=== PATIENT | female | born 1950 | race Two or more races ===

== ENCOUNTER 2025-02-13 10:59 | Inpatient (IN) | payer MEDICARE, OTHER ==
[~2025-02-13] VITALS: Ht 177.8 cm; Wt 96.3 kg
--- NOTE | 2025-02-13 11:13 | ED.PDOC ---
Musculoskeletal HPI Comments This is a 74 year old female MAXIMILIANA presenting to the ED with chief complaint of left hip pain. Patient reports that she had tripped and fell around an hour ago onto her left side, injuring her left hip. Patient relays that she is now experiencing left hip pain, unable to walk or get up on her own due to the pain with movement. Patient denies any numbness, weakness, tingling, or further injury. Chief Complaint: Lower Extremity Time Seen by MD: 11:09 Reviewed Notes: Nurses Notes, Can Machine Operator Notes, Medications, Allergies Allergies: Coded Allergies: NO KNOWN ALLERGIES (Unverified , 02/13/25) Information Source: Patient, Emergency Med Personnel Mode of Arrival: EMS Location: Left Extremity Location: Hip Timing: Hours Prehospital treatment: None Severity: Moderate Able to Move Extremity: No Bear Weight: No Pain: Moderate Mechanism: Spontaneous Circumstances: Fall Onset of Symptoms: After Trauma Symptoms: Pain DVT Risk Factors: NONE Past Medical History PAST MEDICAL HISTORY: DM, High Lipids, HTN, Seizures Surgical History (Other): Left shoulder replacement OPERATION SPECIALIST History: Denies all OPERATION SPECIALIST Hx Family History Family History: Reviewed,noncontributory to illness Social History Smoker: Non-Smoker Alcohol: Denies ETOH Use Drugs: Denies Drug Use Lives In: Home Constitutional: denies: chills, diaphoresis, fatigue, fever, malaise, sweats, weakness, others EENTM: denies: blurred vision, double vision, ear bleeding, ear discharge, ear drainage, ear pain, ear ringing, eye pain, eye redness, hearing loss, mouth pain, mouth swelling, nasal discharge, nose bleeding, nose congestion, nose pain, photophobia, tearing, throat pain, throat swelling, voice changes, others Respiratory: denies: cough, hemoptysis, orthopnea, SOB at rest, shortness of breath, SOB with excertion, stridor, wheezing, others Cardiovascular: denies: chest pain, dizzy spells, diaphoresis, Dyspnea on exertion, edema, irregular heart beat, left arm pain, lightheadedness, palpitations, PND, syncope, others Gastrointestinal: denies: abdomen distended, abdominal pain, blood streaked bowels, constipated, diarrhea, dysphagia, difficulty swallowing, hematemesis, melena, nausea, poor appetite, poor fluid intake, rectal bleeding, rectal pain, vomiting, others Genitourinary: denies: abnormal vagina bleeding, burning, dyspareunia, dysuria, flank pain, frequency, hematuria, incontinence, pain, , vagina discharg e, urgency, others Neurological: denies: dizziness, fainting, headache, left sided numbness, left sided weakness, numbness, paresthesia, pre-existing deficit, right sided numbness, right sided weakness, seizure, speech problems, tingling, tremors, weakness, others Musculoskeletal: reports: others (Left hip pain); denies: back pain, gout, joint pain, joint swelling, muscle pain, muscle stiffness, neck pain Integumetry: denies: bruises, change in color, change in hair/nails, dryness, laceration, lesions, lumps, rash, wounds, others Allergic/Immunocompromised: denies: Difficulty Healing, Frequent Infections, Hives, Itching, others Hematologic/Lymphatic: denies: anemia, blood clots, easy bleeding, easy bruising, swollen glands, others Endocrine: denies: excessive hunger, excessive sweating, excessive thirst, excessive urination, flushing, intolerance to cold, intolerance to heat, unexplained weight gain, unexplained weight loss, others Psychiatric: denies: anxiety, bipolar disorder, depression, hopeless, panic disorder, schizophrenia, sleepless, suicidal, others All Other Systems: Reviewed and Negative Physical Exam General Appearance: Moderate Distress, Normal HEENT: Normal ENT Inspection, Pharynx Normal, TMs Normal Neck: Full Range of Motion, Non-Tender, Normal, Normal Inspection Respiratory: Chest Non-Tender, Lungs Clear, No Accessory Muscle Use, No Respiratory Distress, Normal Breath Sounds Cardiovascular: Bradycardia, No Edema, No JVD, No Murmur, No Gallop, Normal Peripheral Pulses Breast Exam: Deferred Gastrointestinal: No Organomegaly, Non Tender, No Pulsatile Mass, Normal Bowel Sounds, Soft Genitalia: Deferred Pelvic: Deferred Rectal: Deferred Extremities: Decreased range of motion (Left lower extremity), No calf tenderness, No pedal edema, Tender (Left lower extremity) Musculoskeletal : Apperance: Normal Neurologic: Alert, yard laborer II-XII nml as Tested, No Motor Deficits, Normal Affect, Normal Mood, No Sensory Deficits Cerebellar Function: NOT DONE Reflexes: NOT DONE Skin: Dry, Normal Color, Warm Peripheral Pulses: 3+ Radial (R), 3+ Radial (L) Lymphatic: No Adenopathy Was a procedure done? Was a procedure done?: No Differential Diagnosis EXT Differential Diagnosis: Fracture, Sprain, Dislocation, Contusion X-Ray, Labs, Meds, VS Vital Signs Date Time Temp Pulse Resp B/P (MAP) Pulse Ox O2 Delivery O2 Flow Rate FiO2 02/13/25 12:47 53 15 131/69 02/13/25 12:00 98.2 53 15 131/69 (89) 92 98.2 02/13/25 11:31 55 13 124/71 02/13/25 11:20 55 13 124/71 (88) 93 02/13/25 11:20 55 13 93 Room Air* 0 21 02/13/25 11:03 98.9 68 16 128/89 100 98.9 Lab Test 02/13/25 14:40 02/13/25 11:30 Range/Units Urine Color Light-yellow Yellow Urine Clarity Clear Clear Urine pH 5.5 5.0-9.0 Urine Specific [place] 1.016 1.001-1.035 Urine Protein Negative Negative Urine Ketones Negative Negative Urine Blood Negative Negative /uL Urine Nitrite 2+ H Negative Urine Bilirubin Negative Negative Urine Urobilinogen Normal Negative mg/dL Urine Leukocyte Esterase Trace Negative /uL Urine RBC <1 0 - 4 /hpf Urine Microscopic WBC 3 0-5 /HPF Urine Squamous Epithelial Cells Few <5 /hpf Urine Bacteria None seen None Seen /hpf Urine Mucus Few None Seen Urine Glucose Normal Normal mg/dL White Blood Count 5.7 4.4-10.8 10^3/uL Red Blood Count 4.43 4.0-5.20 10^6/uL Hemoglobin 14.0 12.2-16.2 g/dL Hematocrit 41.2 36.0-46.0 % Mean Corpuscular Volume 92.9 80.0-100.0 fL Mean Corpuscular Hemoglobin 31.7 28.0-32.0 pg Mean Corpuscular Hemoglobin Concent 34.1 32.0-36.0 g/dL Red Cell Distribution Width 13.5 11.8-14.3 % Platelet Count 123 L 140-450 10^3/uL Mean Platelet Volume 8.0 6.9-10.8 fL Neutrophils (%) (Auto) 78.1 37.0-80.0 % Lymphocytes (%) (Auto) 12.9 10.0-50.0 % Monocytes (%) (Auto) 5.6 0.0-12.0 % Eosinophils (%) (Auto) 2.9 0.0-7.0 % Basophils (%) (Auto) 0.5 0.0-2.0 % Neutrophils # (Auto) 4.4 1.6-8.6 10 ^3/uL Lymphocytes # (Auto) 0.7 0.4-5.4 10 ^3/uL Monocytes # (Auto) 0.3 0-1.3 10 ^3/uL Eosinophils # (Auto) 0.2 0-0.8 10 ^3/uL Basophils # (Auto) 0 0-0.2 10 ^3/uL Nucleated Red Blood Cells 0.0 % Sodium Level 140 136-145 mmol/L Potassium Level 4.2 3.5-5.1 mmol/L Chloride Level 105 98-107 mmol/L Carbon Dioxide Level 27 20-31 mmol/L Anion Gap 8 5-15 Blood Urea Nitrogen 11 9-23 mg/dL Creatinine 0.85 0.550-1.02 mg/dL Glomerular Filtration Rate Calc 71 >90 mL/min BUN/Creatinine Ratio 12.9 10.0-20.0 Serum Glucose 152 H 74-106 mg/dL Calcium Level 9.3 8.7-10.4 mg/dL Current Medications Medications (Trade) Dose Ordered Sig/Herve Route Start Time Stop Time Status Last Admin Morphine Sulfate 4 mg ONCE ONCE IV 02/13/25 11:15 02/13/25 11:16 DC 02/13/25 11:31 Ondansetron HCl (Zofran) 4 mg ONCE ONCE IV 02/13/25 11:15 02/13/25 11:16 DC 02/13/25 11:31 Pelvis XR: There is no evidence of acute fracture or dislocation. Moderate degenerative changes of bilateral hips. Lucency is present in the left femoral neck which is felt to most likely represent artifact. If there is high clinical suspicion for fracture in this area recommend dedicated left hip radiographs. Patient alert. Complaining of left hip pain. Status post fall. Vitals stable. Blood sugar elevated. CT scan of the pelvis does show degenerative disease. Possibly need CT scan. Continues to have excruciating. Establish intravenous access. Was given morphine. Was given Zofran. Continue monitor. Images Reviewed?: Images reviewed and evaluated by me Time of 1ST Reevaluation: 12:08 Reevaluation 1ST: Unchanged Patient Education/Counseling: Diagnosis, Treatment Family Education/Counseling: No Family Present Departure 1 Departure Time of Disposition: 14:58 Impression: Primary Impression: Bradycardia Additional Impressions: Femur fracture Qualified Codes: S72.92XA - Unspecified fracture of left femur, initial encounter for closed fracture Uncontrolled diabetes mellitus Qualified Codes: E13.65 - Other specified diabetes mellitus with hyperglycemia Disposition: ADMITTED INPATIENT Admit to: Med Surg Condition: Guarded Critical Care Note Critical Care Time?: No Stability Stability form required: No Heart Score Heart Score: Heart Score Response (Comments) Value History Slightly Suspicious 0 EKG Normal 0 Age >65 2 Risk Factors >3 or Hx ASHD 2 Troponin Normal limit 0 Total 4 I personally scribed for JOSE STYLES MD ([email or web address]) on 02/13/25 at 11:13. Electronically submitted by Alan Martinez ([email or web address]). I personally scribed for JOSE STYLES MD ([email or web address]) on 02/13/25 at 12:16. Electronically submitted by Alan Martinez ([email or web address]). JOSE STYLES MD Feb 13, 2025 11:13
[2025-02-13 11:20] VITALS: PULSE 55; RESP 13; O2SAT 93
[2025-02-13] MEDS: ONDANSETRON HCL 4 MG/2 ML VIAL IV ONE (11:31)
[2025-02-13] MEDS: MORPHINE SULFATE 4 MG/ML SYR/VIAL IV ONE (11:31)
[2025-02-13 11:40] LABS: Hematocrit 41.2 % (36.0-46.0); Hemoglobin 14.0 g/dL (12.2-16.2); Mean Corpuscular Hemoglobin 31.7 pg (28.0-32.0); Mean Corpuscular Volume 92.9 fL (80.0-100.0); Nucleated Red Blood Cells % 0.0 %
[2025-02-13 11:47] LABS: Chloride 105 mmol/L (98-107); Potassium 4.2 mmol/L (3.5-5.1); Sodium 140 mmol/L (136-145)
[2025-02-13 11:48] LABS: Anion Gap 8 (5-15); Calcium 9.3 mg/dL (8.7-10.4); Carbon Dioxide 27 mmol/L (20-31)
[2025-02-13 11:53] LABS: BUN/Creatinine Ratio 12.9 (10.0-20.0); Blood Urea Nitrogen 11 mg/dL (9-23)
[2025-02-13 11:54] LABS: Glucose 152 mg/dL (74-106)
--- NOTE | 2025-02-13 12:07 | DVH ---
CLINICAL INDICATION: fx TECHNIQUE: XY PELVIS AP Comparison: None FINDINGS/IMPRESSION: : There is no evidence of acute fracture or dislocation. Moderate degenerative changes of bilateral hips. Lucency is present in the left femoral neck which is felt to most likely represent artifact. If there is high clinical suspicion for fracture in this area recommend dedicated left hip radiographs.
[2025-02-13 15:18] LABS: Urine Protein, UAD Negative (Negative)
--- NOTE | 2025-02-13 15:39 | DVH ---
EXAM: CT PELVIS WO CONTRAST INDICATION: lefthip TECHNIQUE: Axial images of pelvis without contrast have been obtained along with coronal and sagittal reformatted images. All CT scans at this facility use dose modulation, iterative reconstruction, and /or weight based dosing when appropriate to reduce radiation dose to as low as reasonably achievable. COMPARISON: XY PELVIS AP on DOS: 02/13/25 FINDINGS: BONES: Significant comminuted, impacted left transcervical femoral neck fracture with anterior apex a ngulation. Mild 1/3 shaft width anterior displacement of the distal fragment. Largely nondisplaced fr acture of the S5 vertebral body. MUSCLES: No measurable intramuscular hematoma JOINT SPACES: No joint effusion. TENDONS/LIGAMENTS: Intact. OTHER: Soft tissue swelling likely related to soft tissue contusion of the left lateral thigh IMPRESSION: 1. Significant comminuted, impacted left transcervical femoral neck fracture with anterior apex angul ation. 2. Largely nondisplaced fracture of the S5 vertebral body.
[2025-02-13] MEDS ORDERED: MORPHINE SULFATE INJ 2 MG/ml SYRG IV PRN (16:00)
[2025-02-13] MEDS ORDERED: NITROGLYCERIN 0.4 MG SL TAB SL PRN (16:00)
[2025-02-13] MEDS ORDERED: ONDANSETRON HCL 4 MG/2 ML VIAL IV PRN (16:00)
[2025-02-13] MEDS: MORPHINE SULFATE INJ 2 MG/ml SYRG IV PRN (16:30)
[2025-02-13] MEDS: SODIUM CHLORIDE 0.9% 1,000 ML IV SCH (17:04)
--- NOTE | 2025-02-13 17:23 | DVHHPRES ---
History of Present Illness Resident Creating Document: SANKET CHRISTIANSON RESIDENT History of Present Illness Cynthia Parks is a 74-year-old female with history of diabetes mellitus type 2, seizure disorder, hypertension, hypothyroidism and dyslipidemia who presented to the ED after she tripped over her dog and fell this morning. Patient mentions that the fall impacted her left hip. She states she did not hit her head. The patient currently has pain in her lower back and her left hip. She can not move her left leg and can not bear weight on it. Past medical history: Diabetes mellitus type 2, hypertension, seizure disorder, hypothyroidism, dyslipidemia Past surgical history: Shoulder replacement in May 2024, hysterectomy, fusion surgery for C5-C6 C7, surgical fixation of the right radius Home medications: Metformin, Keppra, lisinopril, levothyroxine, Celexa, pravastatin Social & Personal history: Lives at home, vapes nicotine, denies alcohol and recreational drug consumption Allergies: No known allergies Patient seen and examined at bedside. Patient is alert and oriented to time, place person and responding to all questions. Patient is in distress due to pain in her bag and left hip. Eyes: No Pain, No Vision change, No Conjunctivae inflammation, No Eyelid inflammation, No Redness ENT: No Ear pain, No Ear discharge, No Nose pain, No Nose discharge, No Nose congestion, No Mouth pain, No Mouth swelling, No Throat pain, No Throat swelling Cardiovascular: No Chest Pain, No Palpitations, No Orthopnea, No Paroxysmal No Dyspnea, No Edema, No Lt Headedness Respiratory: No Cough, No Dry, No Shortness of breath, No SOB with exertion, No Wheezing, No Hemoptysis, No Pleuritic Pain, No Sputum Gastrointestinal: No Nausea, No Vomiting, No Abdominal Pain, No Diarrhea, No Constipation, No Melena, No Hematochezia Genitourinary: No Dysuria, No Frequency, No Incontinence, No Hematuria, No Retention Cardiovascular: HTN Musculoskeletal: Other Endocrine: Diabetes Past Surgical History: Appendectomy, Hysterectomy ALCOHOL: none Drugs: None Review of Systems Review of Systems Patient seen and examined at bedside. Patient is alert and oriented to time, place person and responding to all questions. Patient is in distress because of the pain in her back and left hip. Eyes: No Pain, No Vision change, No Conjunctivae inflammation, No Eyelid inflammation, No Redness ENT: No Ear pain, No Ear discharge, No Nose pain, No Nose discharge, No Nose congestion, No Mouth pain, No Mouth swelling, No Throat pain, No Throat swelling Cardiovascular: No Chest Pain, No Palpitations, No Orthopnea, No Paroxysmal No Dyspnea, No Edema, No Lt Headedness Respiratory: No Cough, No Dry, No Shortness of breath, No SOB with exertion, No Wheezing, No Hemoptysis, No Pleuritic Pain, No Sputum Gastrointestinal: No Nausea, No Vomiting, No Abdominal Pain, No Diarrhea, No Constipation, No Melena, No Hematochezia Genitourinary: No Dysuria, No Frequency, No Incontinence, No Hematuria, No Retention Allergies: Coded Allergies: NO KNOWN ALLERGIES (Unverified , 02/13/25) Medications Current Medications Medications Dose Ordered Sig/Herve Route Start Time Stop Time Status Last Admin Dose Admin Sodium Chloride 1,000 ml @ 60 mls/hr [id number] IV 02/13/25 16:00 Acetaminophen/ Hydrocodone Bitart 1 tab Q4HP PRN PO 02/13/25 16:00 Ondansetron HCl 4 mg Q4HP PRN IV 02/13/25 16:00 Acetaminophen 650 mg Q6HP PRN PO 02/13/25 16:00 Morphine Sulfate 2 mg Q4HPRN PRN IV 02/13/25 16:00 Nitroglycerin 0.4 mg Q5MINP PRN SL 02/13/25 16:00 Morphine Sulfate 2 mg Q30M PRN IV 02/13/25 16:00 Exam Vital Signs Vital Signs Date Time Temp Pulse Resp B/P (MAP) Pulse Ox O2 Delivery O2 Flow Rate FiO2 02/13/25 16:30 97.5 52 18 131/66 (87) 97 97.5 02/13/25 11:20 Room Air* 0 21 Exam General Appearance: Cooperative. Well developed. Well nourished. NAD. The patient is lying on the stretcher with her left leg externally rotated and flexed. Head Exam: Normal inspection Neck Exam: Normal inspection. Non-tender. Normal alignment Pulmonary/Respiratory: Chest non-tender. Clear bilateral breath sounds, no crackles, no wheezing. Cardiovascular/Chest: Regular rate and rhythm. No murmurs. No JVD. Peripheral Pulses: 2+ Radial (R). 2+ Radial (L). 2+ Pedal (R). 2+ Pedal (L) Abdominal Exam: Normal bowel sounds. Soft. normal abdomen, no visible veins, Nontender. No hepatospenomegaly. No masses Ankle Exam: Negative ankle edema Lower extremities: Negative lower extremity edema Neuro/Mental Status: A&O x4. Coherent. Thoughts/Psych: Normal thought pattern. Appropriate mood and affect. Good judgement and insight Skin Exam: Normal inspection. Normal color. Warm. Dry Labs/Xrays Labs Test 02/13/25 14:40 02/13/25 11:30 Range/Units Urine Color Light-yellow Yellow Urine Clarity Clear Clear Urine pH 5.5 5.0-9.0 Urine Specific [employer] 1.016 1.001-1.035 Urine Protein Negative Negative Urine Ketones Negative Negative Urine Blood Negative Negative /uL Urine Nitrite 2+ H Negative Urine Bilirubin Negative Negative Urine Urobilinogen Normal Negative mg/dL Urine Leukocyte Esterase Trace Negative /uL Urine RBC <1 0 - 4 /hpf Urine Microscopic WBC 3 0-5 /HPF Urine Squamous Epithelial Cells Few <5 /hpf Urine Bacteria None seen None Seen /hpf Urine Mucus Few None Seen Urine Glucose Normal Normal mg/dL White Blood Count 5.7 4.4-10.8 10^3/uL Red Blood Count 4.43 4.0-5.20 10^6/uL Hemoglobin 14.0 12.2-16.2 g/dL Hematocrit 41.2 36.0-46.0 % Mean Corpuscular Volume 92.9 80.0-100.0 fL Mean Corpuscular Hemoglobin 31.7 28.0-32.0 pg Mean Corpuscular Hemoglobin Concent 34.1 32.0-36.0 g/dL Red Cell Distribution Width 13.5 11.8-14.3 % Platelet Count 123 L 140-450 10^3/uL Mean Platelet Volume 8.0 6.9-10.8 fL Neutrophils (%) (Auto) 78.1 37.0-80.0 % Lymphocytes (%) (Auto) 12.9 10.0-50.0 % Monocytes (%) (Auto) 5.6 0.0-12.0 % Eosinophils (%) (Auto) 2.9 0.0-7.0 % Basophils (%) (Auto) 0.5 0.0-2.0 % Neutrophils # (Auto) 4.4 1.6-8.6 10 ^3/uL Lymphocytes # (Auto) 0.7 0.4-5.4 10 ^3/uL Monocytes # (Auto) 0.3 0-1.3 10 ^3/uL Eosinophils # (Auto) 0.2 0-0.8 10 ^3/uL Basophils # (Auto) 0 0-0.2 10 ^3/uL Nucleated Red Blood Cells 0.0 % Sodium Level 140 136-145 mmol/L Potassium Level 4.2 3.5-5.1 mmol/L Chloride Level 105 98-107 mmol/L Carbon Dioxide Level 27 20-31 mmol/L Anion Gap 8 5-15 Blood Urea Nitrogen 11 9-23 mg/dL Creatinine 0.85 0.550-1.02 mg/dL Glomerular Filtration Rate Calc 71 >90 mL/min BUN/Creatinine Ratio 12.9 10.0-20.0 Serum Glucose 152 H 74-106 mg/dL Calcium Level 9.3 8.7-10.4 mg/dL SEPSIS Sepsis Screen Date sepsis recognized/suspect: Feb 13, 2025 Time Sepsis recognized/suspect: 1119 Recent Procedure: No On Antibiotic Therapy: No Respiratory Rate >20: No Heart Rate >90: No Temp<36 C (96.8 F) or >38.3 C: No SBP <90 or MAP <65 mmHG: No New Acute Mental Status Change: No Is the patient on CPAP, BIPAP,: No Physician Orders Pelvis Ap (02/13/25 11:12) Pelvis Wo Contrast (02/13/25 15:01) Admit (02/13/25 15:55) Allergies (02/13/25 15:55) Code Status (02/13/25 15:55) Renal Standard(2gna,3gk,Lopho) (02/13/25 Dinner) Sodium Chloride 0.9% (02/13/25 16:00) Hydrocodone-Acet 5/325mg Tab (Hoffman 5/32 (02/13/25 16:00) Ondansetron Hcl (Zofran) (02/13/25 16:00) Complete Blood Count (02/14/25 04:00) Comprehensive Metabolic Panel (02/14/25 04:00) Condition: Unstable (02/13/25 15:55) Acetaminophen Tablet (Tylenol Tablet) (02/13/25 16:00) Morphine Sulfate Injection (02/13/25 16:00) Nitroglycerin Sublingual (Ntrostat Subli (02/13/25 16:00) Morphine Sulfate Injection (02/13/25 16:00) Oxygen By Nasal Cannula (02/13/25 15:55) Stat Ekg For Chest Pain (02/13/25 15:55) Notify Md Of Changes From Base (02/13/25 15:55) Steaming Cabinet Tender For 24 Hours (02/13/25 15:55) Emergency Dysrhythmia Protocol (02/13/25 15:55) Rhythm Strips Once Every Shift (02/13/25 15:55) *Consult Dr. Kevin Weeks (02/13/25 16:21) Thyroid Stimulating Hormone (02/13/25 16:34) PTPTT (02/13/25 16:34) Hemoglobin A1c (02/13/25 16:34) Covid19 Antigen [place]abel (02/13/25 ) Rapid Influenza A&B (02/13/25 16:37) Vital Signs Date Time Temp Pulse Resp B/P (MAP) Pulse Ox O2 Delivery O2 Flow Rate FiO2 02/13/25 16:30 97.5 52 18 131/66 (87) 97 97.5 02/13/25 12:47 53 15 131/69 02/13/25 12:00 98.2 53 15 131/69 (89) 92 98.2 02/13/25 11:31 55 13 124/71 02/13/25 11:20 55 13 124/71 (88) 93 02/13/25 11:20 55 13 93 Room Air* 0 21 02/13/25 11:03 98.9 68 16 128/89 100 98.9 Laboratory Tests Test 02/13/25 11:30 White Blood Count 5.7 10^3/uL (4.4-10.8) Medications Medications Dose Ordered Sig/Herve Route Start Time Stop Time Status Last Admin Dose Admin Morphine Sulfate 4 mg ONCE ONCE IV 02/13/25 11:15 02/13/25 11:16 DC 02/13/25 11:31 4 MG Ondansetron HCl 4 mg ONCE ONCE IV 02/13/25 11:15 02/13/25 11:16 DC 02/13/25 11:31 4 MG Assessment/Plan Assessment/Plan Acute Left comminuted femoral neck fracture mechanical fall without LOC S5 vertebral body fracture -Pelvic CT showed-Significant comminuted, impacted left transcervical femoral neck fracture with anterior apex angulation -Largely nondisplaced fracture of the S5 vertebral body -ortho consult -pain management Diabetes mellitus, controlled -insulin mild sliding scale Hypertension, controlled -continue lisinopril 50mg daily Seizure disorder -continue home dose of Keppra 750 mg bid Dyslipidemia -continue pravastatin Hypothyroidism -resume levothyroxine 50 PUD prophylaxis: not indicated DVT prophylaxis: not indicated Goals of care: Full code, discussed for >23 minutes Plan discussed with Dr Crouch Plan discussed with: Patient, Daughter My Orders Orders - SANKET CHRISTIANSON RESIDENT Procedure Category Date Status Time Admit ADMIT 02/13/25 Transmitted 15:55 Allergies ELAINE 02/13/25 In Process 15:55 Code Status CODE 02/13/25 Transmitted 15:55 Renal DIET 02/13/25 Transmitted Standard(2gna,3gk,Lopho) Dinner Sodium Chloride 0.9% PHA 02/13/25 In Process 16:00 Hydrocodone-Acet PHA 02/13/25 In Process 5/325mg Tab (Hoffman 16:00 Ondansetron Hcl PHA 02/13/25 In Process (Zofran) 16:00 Complete Blood Count LAB 02/14/25 Verified 04:00 Comprehensive LAB 02/14/25 Verified Metabolic Panel 04:00 Condition: Unstable ELAINE 02/13/25 In Process 15:55 Acetaminophen Tablet PHA 02/13/25 In Process (Tylenol Tablet) 16:00 Morphine Sulfate PHA 02/13/25 In Process Injection 16:00 Nitroglycerin PHA 02/13/25 In Process Sublingual (Ntrostat 16:00 Morphine Sulfate PHA 02/13/25 In Process Injection 16:00 Oxygen By Nasal RT 02/13/25 Transmitted Cannula 15:55 Stat Ekg For Chest ELAINE 02/13/25 In Process Pain 15:55 Notify Of Changes ELAINE 02/13/25 In Process From Base 15:55 Steaming Cabinet Tender For ELAINE 02/13/25 In Process 24 Hours 15:55 Emergency Dysrhythmia ELAINE 02/13/25 In Process Protocol 15:55 Rhythm Strips Once ELAINE 02/13/25 In Process Every Shift 15:55 Thyroid Stimulating LAB 02/13/25 In Process Hormone 16:34 PTPTT LAB 02/13/25 Logged 16:34 Hemoglobin A1c LAB 02/13/25 In Process 16:34 Covid19 Antigen [place] LAB 02/13/25 Logged Rapid Influenza A&B LAB 02/13/25 Logged 16:37 Date of Service: Feb 13, 2025 Billing Provider: DAVID HOOPER MD Common Visit Codes: 59004-IPXDNAG INP/OBS CARE (HIGH) Secondary Visit Codes: [id number] CARE PLAN 30 MINUTES SANKET CHRISTIANSON RESIDENT Feb 13, 2025 17:22 DAVID HOOPER MD Feb 22, 2025 18:39
[2025-02-13] MEDS ORDERED: DEXTROSE (50%) 50ML SYRG IV PRN (17:30)
[2025-02-13 17:57] LABS: INR 1.15 (0.9-1.15); Partial Thromboplastin Time 26.3 SEC (24.5-34.5); Prothrombin Time 12.0 sec (9.3-11.8)
[2025-02-13 18:27] VITALS: BP 125/78; PULSE 65; RESP 18; TEMP 98.2; O2SAT 95
[2025-02-13 19:17] LABS: COVID19 ANTIGEN SOFIA FIA NEGATIVE (NEGATIVE)
[2025-02-13 20:00] VITALS: PULSE 74; RESP 18; O2SAT 96
[2025-02-13 21:00] VITALS: BP 120/61; PULSE 74; RESP 18; TEMP 98.3; O2SAT 96
[2025-02-13] MEDS: ACCU-CHEK COMFORT CURVE STRIP VI SCH (22:29)
[2025-02-13] MEDS: InsuLIN REG 1unit/0.01ml Soln (100units/ml) SC SCH (22:36)
[2025-02-14] VITALS (8 sets, daily range): BP systolic 109–145; BP diastolic 53–78; PULSE 57–70; RESP 16–20; TEMP 89.5–99.8; O2SAT 95–98
[2025-02-14] MEDS: LEVOTHYROXINE SODIUM 50 MCG TAB PO SCH (06:09)
[2025-02-14] MEDS: HYDROcodone-ACET 5/325MG TAB PO PRN (06:19)
[2025-02-14 07:09] LABS: Hematocrit 38.1 % (36.0-46.0); Hemoglobin 13.3 g/dL (12.2-16.2); Mean Corpuscular Hemoglobin 32.1 pg (28.0-32.0); Mean Corpuscular Volume 92.0 fL (80.0-100.0); Nucleated Red Blood Cells % 0.1 %
[2025-02-14 07:20] LABS: Alanine Aminotransferase 16 U/L (7-40); Albumin 3.8 g/dL (3.2-4.8); Alkaline Phosphatase 50 U/L (46-116); Anion Gap 8 (5-15); BUN/Creatinine Ratio 14.9 (10.0-20.0); Blood Urea Nitrogen 10 mg/dL (9-23); Calcium 8.8 mg/dL (8.7-10.4); Carbon Dioxide 27 mmol/L (20-31); Chloride 105 mmol/L (98-107); Potassium 3.9 mmol/L (3.5-5.1); Sodium 140 mmol/L (136-145); Total Protein 5.8 g/dL (5.7-8.2)
[2025-02-14 07:21] LABS: Bilirubin, Total 1.0 mg/dL (0.2-1.0); Glucose 142 mg/dL (74-106)
[2025-02-14] MEDS: LEVETIRACETAM 500 MG/100 ML IV ONE (09:01)
[2025-02-14] MEDS: LISINOPRIL 20 MG TAB PO SCH (09:03)
[2025-02-14] MEDS: CITALOPRAM HYDROBR 20 MG TAB PO SCH (09:14)
--- NOTE | 2025-02-14 10:06 | DVHPNRES ---
Progress Note Date Seen: Feb 14, 2025 Resident Creating Document: ANGEL LEYVA RESIDENT Medical Necessity Reason Pt with a Central, PICC or Fol: No Subjective Review of Systems Cynthia Parks is a 74-year-old female with history of diabetes mellitus type 2, seizure disorder, hypertension, hypothyroidism and dyslipidemia who presented to the ED after she tripped over her dog and fell this morning. Patient mentions that the fall impacted her left hip. She states she did not hit her head. The patient currently has pain in her lower back and her left hip. She can not move her left leg and can not bear weight on it. Past medical history: Diabetes mellitus type 2, hypertension, seizure disorder, hypothyroidism, dyslipidemia Past surgical history: Shoulder replacement in May 2024, hysterectomy, fusion surgery for C5-C6 C7, surgical fixation of the right radius Home medications: Metformin, Keppra, lisinopril, levothyroxine, Celexa, pravastatin Social & Personal history: Lives at home, vapes nicotine, denies alcohol and recreational drug consumption Patient was seen at bed side. Labs and charts reviewed. Patient reported on going pain, on pain meds. ordered CXR, Typing and cross matching, EKG, PT with INR, Spoke to Dr. Herrmann, Recommended for cardiology consult for cardiac clearance for surgery. Cardiolgy orderd ECHO 2D. Objective vital signs Vital Sign Date Time Temp Pulse Resp B/P (MAP) Pulse Ox O2 Delivery O2 Flow Rate FiO2 02/14/25 09:03 109/67 02/14/25 09:00 89.5 57 18 96 89.5 02/13/25 20:00 Room Air* 0 21 Total Intake and Output 02/13/25 02/13/25 02/14/25 15:00 23:00 07:00 Intake Total 100 ml 500 ml Balance 100 ml 500 ml medications Current Medications Medications Dose Ordered Sig/Herve Route Start Time Stop Time Status Last Admin Dose Admin Sodium Chloride 1,000 ml @ 60 mls/hr [id number] IV 02/13/25 16:00 02/14/25 07:43 60 MLS/HR Acetaminophen/ Hydrocodone Bitart 1 tab Q4HP PRN PO 02/13/25 16:00 02/14/25 06:19 1 TAB Ondansetron HCl 4 mg Q4HP PRN IV 02/13/25 16:00 Acetaminophen 650 mg Q6HP PRN PO 02/13/25 16:00 Morphine Sulfate 2 mg Q4HPRN PRN IV 02/13/25 16:00 02/13/25 22:18 2 MG Nitroglycerin 0.4 mg Q5MINP PRN SL 02/13/25 16:00 Morphine Sulfate 2 mg Q30M PRN IV 02/13/25 16:00 Lisinopril 20 mg DAILY PO 02/14/25 10:00 02/14/25 09:03 20 MG Diagnostic Test (Pha) 1 strip ACHS 02/13/25 22:00 02/14/25 06:13 1 STRIP Insulin Human Regular ACHS SC 02/13/25 22:00 02/14/25 06:16 3 UNITS Dextrose 50 ml UD PRN IV 02/13/25 17:30 Levothyroxine Sodium 50 mcg QAM@0600 PO 02/14/25 06:00 02/14/25 06:09 50 MCG Citalopram Hydrobromide 40 mg DAILY PO 02/14/25 10:00 02/14/25 09:14 40 MG Levetiracetam 750 mg/Sodium Chloride 107.5 ml @ 430 mls/hr BID IV 02/13/25 22:00 02/13/25 22:19 430 MLS/HR Examination General examination- awake, alert, oriented HEENT- PEERLA, no acute nasal discharge Cardiovascular- S1-S2 audible, rate and rhythm regular, no murmur Respiratory- CTAB, no wheeze or rhonchi Gastrointestinal-nontender, bowel sound+. Nondistended Musculoskeletal-no acute joint swelling or tenderness or redness Lower extremity- lives with tenderness+ Neurological- cranial nerves intact, no acute dysarthria or dysphagia Psychiatry- denies depression or SI or HI Skin- no acute rash or purpura laboratory and microbiology Laboratory Tests 02/14/25 06:27 Test 02/14/25 06:27 Range/Units Serum Glucose 142 H 74-106 mg/dL Problem List/Assessment/Plan Problem List/Assessment/Plan Assessment/Plan #Acute Left comminuted femoral neck fracture #mechanical fall without LOC #S5 vertebral body fracture -Pelvic CT showed-Significant comminuted, impacted left transcervical femoral neck fracture with anterior apex angulation -Largely nondisplaced fracture of the S5 vertebral body -pending ortho consult -continue current pain management -RCRI score 2 points -DASI -[facility] activity status index 50.7 -Odered Cardioolgy consult for Cardiac clearance for surgery -continue low-dose IV fluid #Diabetes mellitus, controlled -hemoglobin A1c 6.6 -insulin mild sliding scale #Hypertension, controlled -continue lisinopril 50mg daily -monitor BP #Seizure disorder -continue home dose of Keppra 750 mg bid #Dyslipidemia -continue pravastatin #Hypothyroidism -resume levothyroxine 50 mcg p.o. q.a.m. PUD prophylaxis: not indicated DVT prophylaxis: not indicated Goals of care: Full code, discussed for >23 minutes Plan discussed with Dr Crouch Plan discussed with: Patient Plan discussed with: Patient, Other (RN) Date of Service: Feb 14, 2025 Billing Provider: DAVID HOOPER MD Common Visit Codes: [id number] INP/OBS CARE(HIGH) ANGEL LEYVA RESIDENT Feb 14, 2025 10:06 DAVID HOOPER MD Feb 22, 2025 18:21
--- NOTE | 2025-02-14 11:41 | DVH ---
AP portable chest CLINICAL INDICATION: Rule out pneumonia FINDINGS: Heart size is normal. Aorta tortuous No infiltrates or effusions. There is a left shoulder prosthesis present. IMPRESSION: 1. No acute infiltrates
--- NOTE | 2025-02-14 16:56 | DVHINCON2 ---
Date Seen: Feb 14, 2025 Referring Physician MD Hermilo resident Reason for Consultation Preprocedural cardiovascular examination History of Present Illness This is a 74-year-old female patient who presents to emergency room status post mechanical fall. The patient reports she was at home and accidentally tripped over her dog. She began having severe left hip pain which prompted her to come to the emergency room. Imaging has revealed a left femoral neck fracture as well as a nondisplaced fracture of the S5 vertebral body. Cardiology has been consulted at this time for cardiac risk stratification pending possible surgical procedure. Initial twelve lead electrocardiogram reveals sinus bradycardia first-degree conduction delay without any significant ST segment changes. She denies any cardiac symptoms. Significant past medical history includes hypertension, dyslipidemia, left lower extremity DVT over five years ago, thyroid disease, type 2 diabetes mellitus, seizure disorder and tobacco use. Past Medical History Past medical history reviewed. No other significant than mentioned above. Past Surgical History Left shoulder replacement Tonsillectomy Appendectomy Family History: Patient reports no known family medical history. Family History Family history reviewed. Social History Patient has a 50 pack-year history, quit smoking approximately three years ago but still vapes nicotine Denies any illicit drug use or alcohol use Allergies: Coded Allergies: NO KNOWN ALLERGIES (Unverified , 02/13/25) Home Meds Home medications reviewed. Current Medications Current Medications Medications (Trade) Dose Ordered Sig/Herve Route PRN Reason Start Time Stop Time Status Last Admin Lisinopril (Zestril Tablet) 20 mg DAILY PO 02/14/25 10:00 02/14/25 09:03 Diagnostic Test (Pha) (Accu-Chek Comfort Curve T) 1 strip ACHS 02/13/25 22:00 02/14/25 11:12 Insulin Human Regular (InsuLIN R) ACHS SC 02/13/25 22:00 02/14/25 11:16 Dextrose 50 ml UD PRN IV Blood Sugar LESS THAN 60 02/13/25 17:30 Levothyroxine Sodium (Synthroid Tablet) 50 mcg QAM@0600 PO 02/14/25 06:00 02/14/25 06:09 Citalopram Hydrobromide (CeleXA TABLET) 40 mg DAILY PO 02/14/25 10:00 02/14/25 09:14 Levetiracetam 750 mg/Sodium Chloride 107.5 ml @ 430 mls/hr BID IV 02/13/25 22:00 02/14/25 10:08 Review of Systems Constitutional: No symptom reported Ears, Nose, & Throat: No symptom reported Eyes: No symptom reported Neurological: No symptoms reported Pulmonary/Respiratory: No symptoms reported Cardiovascular: No symptom reported Gastrointestinal: No symptom reported Genitourinary: No symptom reported Musculoskeletal: Left hip pain Skin: No symptom reported Psychiatric: No symptom reported Endocrine: No symptom reported Hematologic/Lymphatic: No symptom reported Vital Signs Vital Signs Date Time Temp Pulse Resp B/P (MAP) Pulse Ox O2 Delivery O2 Flow Rate FiO2 02/14/25 13:00 98.2 57 16 112/53 (72) 96 98.2 02/14/25 08:00 Room Air* 0 21 Physical Exam General Appearance: Cooperative. Well-developed. Well-nourished. No acute distress. Pulmonary/Respiratory: Clear, bilateral breaths sounds. Cardiovascular/Chest: Regular rate and rhythm. Peripheral Pulses: 2+ Radial (R). 2+ Radial (L). 2+ Pedal (R). 2+ Pedal (L) Abdominal Exam: Normal bowel sounds. Ankle Exam: Negative ankle edema Lower extremities: Negative lower extremity edema Neuro/Mental Status: A/OX4, coherent. Thoughts/Psych: Normal thought pattern. Appropriate mood and affect. Good judgment and insight. Appearance: No acute distress. Skin Exam: Normal inspection. Normal color. Warm and dry. Labs/Diagnostic Data Labs Test 02/14/25 11:12 02/14/25 06:27 02/13/25 17:50 02/13/25 17:21 Range/Units POC Glucose 158 H 70-106 mg/dl White Blood Count 6.0 4.4-10.8 10^3/uL Red Blood Count 4.14 4.0-5.20 10^6/uL Hemoglobin 13.3 12.2-16.2 g/dL Hematocrit 38.1 36.0-46.0 % Mean Corpuscular Volume 92.0 80.0-100.0 fL Mean Corpuscular Hemoglobin 32.1 H 28.0-32.0 pg Mean Corpuscular Hemoglobin Concent 34.9 32.0-36.0 g/dL Red Cell Distribution Width 13.3 11.8-14.3 % Platelet Count 119 L 140-450 10^3/uL Mean Platelet Volume 8.1 6.9-10.8 fL Neutrophils (%) (Auto) 73.4 37.0-80.0 % Lymphocytes (%) (Auto) 16.0 10.0-50.0 % Monocytes (%) (Auto) 7.8 0.0-12.0 % Eosinophils (%) (Auto) 2.5 0.0-7.0 % Basophils (%) (Auto) 0.3 0.0-2.0 % Neutrophils # (Auto) 4.4 1.6-8.6 10 ^3/uL Lymphocytes # (Auto) 1.0 0.4-5.4 10 ^3/uL Monocytes # (Auto) 0.5 0-1.3 10 ^3/uL Eosinophils # (Auto) 0.2 0-0.8 10 ^3/uL Basophils # (Auto) 0 0-0.2 10 ^3/uL Nucleated Red Blood Cells 0.1 % Sodium Level 140 136-145 mmol/L Potassium Level 3.9 3.5-5.1 mmol/L Chloride Level 105 98-107 mmol/L Carbon Dioxide Level 27 20-31 mmol/L Anion Gap 8 5-15 Blood Urea Nitrogen 10 9-23 mg/dL Creatinine 0.67 0.550-1.02 mg/dL Glomerular Filtration Rate Calc 91 >90 mL/min BUN/Creatinine Ratio 14.9 10.0-20.0 Serum Glucose 142 H 74-106 mg/dL Calcium Level 8.8 8.7-10.4 mg/dL Total Bilirubin 1.0 0.2-1.0 mg/dL Aspartate Amino Transferase (AST) 17 13-40 U/L Alanine Aminotransferase (ALT) 16 7-40 U/L Alkaline Phosphatase 50 46-116 U/L Total Protein 5.8 5.7-8.2 g/dL Albumin 3.8 3.2-4.8 g/dL Influenza Type A Antigen Negative Negative Influenza Type B Antigen Negative Negative SARS-CoV-2 Antigen (Rapid) Negative NEGATIVE Prothrombin Time 12.0 H 9.3-11.8 sec Prothrombin Time INR 1.15 0.9-1.15 Activated Partial Thromboplast Time 26.3 24.5-34.5 SEC Test 02/13/25 14:40 02/13/25 11:30 Range/Units Urine Color Light-yellow Yellow Urine Clarity Clear Clear Urine pH 5.5 5.0-9.0 Urine Specific [place] 1.016 1.001-1.035 Urine Protein Negative Negative Urine Ketones Negative Negative Urine Blood Negative Negative /uL Urine Nitrite 2+ H Negative Urine Bilirubin Negative Negative Urine Urobilinogen Normal Negative mg/dL Urine Leukocyte Esterase Trace Negative /uL Urine RBC <1 0 - 4 /hpf Urine Microscopic WBC 3 0-5 /HPF Urine Squamous Epithelial Cells Few <5 /hpf Urine Bacteria None seen None Seen /hpf Urine Mucus Few None Seen Urine Glucose Normal Normal mg/dL Hemoglobin A1c 6.6 H <5.7 % A1C Thyroid Stimulating Hormone (TSH) 2.04 0.55-4.78 uIU/mL Assessment Preprocedural cardiovascular examination Left femoral neck fracture Nondisplaced fracture of the S5 vertebral body Hypertension Dyslipidemia History of left lower extremity DVT Type 2 diabetes mellitus Thyroid disease Seizure disorder Tobacco use Plan/Recommendation We will proceed with the following plan/recommendations (Dr. Loza): A transthoracic echocardiogram reveals an EF of 55%. Revised Cardiac Risk Index (Kevin criteria): 1 point (1.1% risk of major cardiac event). The patient has no cardiac contraindications to proceed with the procedure. Cardiac symptoms have been ruled out. There is no underlying history of congestive heart failure, coronary artery disease, or equivalent of cardiac symptoms. Prior to admission, the patient reports a good functional capacity. Per cardiology standpoint, patient is at an acceptable-risk for moderate-risk surgery. There is no additional cardiac work-up indicated prior to surgery. Thank you for allowing us to participate in this patient's care. Please call if you have any questions or concerns. Critical care time spent: 44 minutes This medical document was created using an electronic medical record system with voice recognition software and computerized dictation system. Although this document has been carefully reviewed, there might still be some phonetic and typographical errors. Occasional wrong-word or ``sound-alike substitutions may have occurred due to the inherent limitations of voice recognition software. These areas are purely typographical due to imperfections of the software programs and do not reflect any compromise in the patient's medical care. Please read the chart carefully and recognize, using context, where these substitutions have occurred. Plan discussed with: Patient NYHA Physical activity limitations: NA Date of Service: Feb 14, 2025 Billing Provider: VISHAL ALEXANDRE Cardiology Common Codes: [id number] INP/OBS CARE (High) VISHAL ALEXANDRE [facility] Feb 14, 2025 16:56
[2025-02-15] VITALS (8 sets, daily range): BP systolic 113–135; BP diastolic 51–89; PULSE 53–61; RESP 17–20; TEMP 98.1–98.6; O2SAT 96–99
[2025-02-15 02:04] LABS: Urine Protein, UAD Negative (Negative)
[2025-02-15 06:18] LABS: Hematocrit 36.1 % (36.0-46.0); Hemoglobin 12.6 g/dL (12.2-16.2); Mean Corpuscular Hemoglobin 32.2 pg (28.0-32.0); Mean Corpuscular Volume 92.1 fL (80.0-100.0); Nucleated Red Blood Cells % 0.1 %
[2025-02-15 06:31] LABS: Alanine Aminotransferase 15 U/L (7-40); Albumin 3.6 g/dL (3.2-4.8); Alkaline Phosphatase 49 U/L (46-116); Anion Gap 7 (5-15); BUN/Creatinine Ratio 12.2 (10.0-20.0); Bilirubin, Total 1.1 mg/dL (0.2-1.0); Blood Urea Nitrogen 6 mg/dL (9-23); Calcium 8.6 mg/dL (8.7-10.4); Carbon Dioxide 28 mmol/L (20-31); Chloride 106 mmol/L (98-107); Glucose 147 mg/dL (74-106); Magnesium 1.7 mg/dL (1.6-2.6); Potassium 3.5 mmol/L (3.5-5.1); Sodium 141 mmol/L (136-145); Total Protein 5.6 g/dL (5.7-8.2)
--- NOTE | 2025-02-15 08:28 | DVHINCON2 ---
Date of service: Feb 15, 2025 Reason for Consultation Left hip fracture History of Present Illness 74 yo F who is visiting from [place] to help take care of a friend sp mechanical fall and landed onto left leg. Immediate pain/inability to bear weight on the left side. No cp/sob/abd pain/nausea/vomiting. Hx of Smoking in past with vaping daily now. Past Medical History hx of left leg DVT treated in past DM Thyroid Seizures Past Surgical History Left Reverse TSA Family History: Patient reports no known family medical history. Allergies: Coded Allergies: NO KNOWN ALLERGIES (Unverified , 02/13/25) Current Medications Current Medications Medications (Trade) Dose Ordered Sig/Herve Route PRN Reason Start Time Stop Time Status Last Admin Lisinopril (Zestril Tablet) 20 mg DAILY PO 02/14/25 10:00 02/14/25 09:03 Citalopram Hydrobromide (CeleXA TABLET) 40 mg DAILY PO 02/14/25 10:00 02/14/25 09:14 Review of Systems 10 point ROS is neg except per HPI Vital Signs Vital Signs Date Time Temp Pulse Resp B/P (MAP) Pulse Ox O2 Delivery O2 Flow Rate FiO2 02/15/25 05:00 98.1 61 18 131/71 (91) 96 98.1 02/14/25 20:00 Room Air* 0 21 Physical Exam NAD Aox3 verbal wn wd LLE; short/ext rotated +TA/GS/EHL/FHL foot wwp Labs/Diagnostic Data Labs Test 02/15/25 06:01 02/15/25 05:08 02/14/25 21:21 02/13/25 17:50 Range/Units POC Glucose 158 H 70-106 mg/dl White Blood Count 5.8 4.4-10.8 10^3/uL Red Blood Count 3.92 L 4.0-5.20 10^6/uL Hemoglobin 12.6 12.2-16.2 g/dL Hematocrit 36.1 36.0-46.0 % Mean Corpuscular Volume 92.1 80.0-100.0 fL Mean Corpuscular Hemoglobin 32.2 H 28.0-32.0 pg Mean Corpuscular Hemoglobin Concent 34.9 32.0-36.0 g/dL Red Cell Distribution Width 13.2 11.8-14.3 % Platelet Count 98 L 140-450 10^3/uL Mean Platelet Volume 8.3 6.9-10.8 fL Neutrophils (%) (Auto) 77.2 37.0-80.0 % Lymphocytes (%) (Auto) 13.0 10.0-50.0 % Monocytes (%) (Auto) 7.3 0.0-12.0 % Eosinophils (%) (Auto) 2.2 0.0-7.0 % Basophils (%) (Auto) 0.3 0.0-2.0 % Neutrophils # (Auto) 4.5 1.6-8.6 10 ^3/uL Lymphocytes # (Auto) 0.8 0.4-5.4 10 ^3/uL Monocytes # (Auto) 0.4 0-1.3 10 ^3/uL Eosinophils # (Auto) 0.1 0-0.8 10 ^3/uL Basophils # (Auto) 0 0-0.2 10 ^3/uL Nucleated Red Blood Cells 0.1 % Sodium Level 141 136-145 mmol/L Potassium Level 3.5 3.5-5.1 mmol/L Chloride Level 106 98-107 mmol/L Carbon Dioxide Level 28 20-31 mmol/L Anion Gap 7 5-15 Blood Urea Nitrogen 6 L 9-23 mg/dL Creatinine 0.49 L 0.550-1.02 mg/dL Glomerular Filtration Rate Calc 98 >90 mL/min BUN/Creatinine Ratio 12.2 10.0-20.0 Serum Glucose 147 H 74-106 mg/dL Calcium Level 8.6 L 8.7-10.4 mg/dL Magnesium Level 1.7 1.6-2.6 mg/dL Total Bilirubin 1.1 H 0.2-1.0 mg/dL Aspartate Amino Transferase (AST) 14 13-40 U/L Alanine Aminotransferase (ALT) 15 7-40 U/L Alkaline Phosphatase 49 46-116 U/L Total Protein 5.6 L 5.7-8.2 g/dL Albumin 3.6 3.2-4.8 g/dL Urine Color Colorless Yellow Urine Clarity Clear Clear Urine pH 6.0 5.0-9.0 Urine Specific Viper 1.006 1.001-1.035 Urine Protein Negative Negative Urine Ketones Negative Negative Urine Blood Negative Negative /uL Urine Nitrite 2+ H Negative Urine Bilirubin Negative Negative Urine Urobilinogen Normal Negative mg/dL Urine Leukocyte Esterase Negative Negative /uL Urine RBC 1 0 - 4 /hpf Urine Microscopic WBC 1 0-5 /HPF Urine Squamous Epithelial Cells Few <5 /hpf Urine Bacteria None seen None Seen /hpf Urine Glucose Normal Normal mg/dL Influenza Type A Antigen Negative Negative Influenza Type B Antigen Negative Negative SARS-CoV-2 Antigen (Rapid) Negative NEGATIVE Test 02/13/25 17:21 02/13/25 14:40 02/13/25 11:30 Range/Units Prothrombin Time 12.0 H 9.3-11.8 sec Prothrombin Time INR 1.15 0.9-1.15 Activated Partial Thromboplast Time 26.3 24.5-34.5 SEC Urine Mucus Few None Seen Hemoglobin A1c 6.6 H <5.7 % A1C Thyroid Stimulating Hormone (TSH) 2.04 0.55-4.78 uIU/mL Plan/Recommendation 74 yo F sp fall with displaced left femoral neck fracture 1. I had a long and thorough discussion with patient regarding her condition. Questions for patient answered. Risks benefits options and alternative reviewed in depth. Risks include but not exclusive to bleeding infection nerve injury hardware failure nonunion malunion chronic pain blood clots cardiac and pulmonary complications amputation dislocation leg length discrepancy and . Patient understands the morbidity and mortality of hip fractures in the elderly. She wishes to proceed with surgery. 2. Plan for left total hip arthroplasty versus hip hemiarthroplasty 3. NPO/IVF 4. pain control Plan discussed with: Patient DANNY KITCHEN MD Feb 15, 2025 08:28
--- NOTE | 2025-02-15 14:18 | DVHPNRES ---
Progress Note Date Seen: Feb 15, 2025 Resident Creating Document: SANKET CHRISTIANSON RESIDENT Medical Necessity Reason Pt with a Central, PICC or Fol: No Subjective Review of Systems Cynthia Parks is a 74-year-old female with history of diabetes mellitus type 2, seizure disorder, hypertension, hypothyroidism and dyslipidemia who presented to the ED after she tripped over her dog and fell this morning. Patient mentions that the fall impacted her left hip. She states she did not hit her head. The patient currently has pain in her lower back and her left hip. She can not move her left leg and can not bear weight on it. Past medical history: Diabetes mellitus type 2, hypertension, seizure disorder, hypothyroidism, dyslipidemia Past surgical history: Shoulder replacement in May 2024, hysterectomy, fusion surgery for C5-C6 C7, surgical fixation of the right radius Home medications: Metformin, Keppra, lisinopril, levothyroxine, Celexa, pravastatin Social & Personal history: Lives at home, vapes nicotine, denies alcohol and recreational drug consumption Allergies: No known allergies Patient seen and examined at bedside. Patient is alert and oriented to time, place person and responding to all questions. Patient is in distress due to pain in her back and left hip. Eyes: No Pain, No Vision change, No Conjunctivae inflammation, No Eyelid inflammation, No Redness ENT: No Ear pain, No Ear discharge, No Nose pain, No Nose discharge, No Nose congestion, No Mouth pain, No Mouth swelling, No Throat pain, No Throat swelling Cardiovascular: No Chest Pain, No Palpitations, No Orthopnea, No Paroxysmal No Dyspnea, No Edema, No Lt Headedness Respiratory: No Cough, No Dry, No Shortness of breath, No SOB with exertion, No Wheezing, No Hemoptysis, No Pleuritic Pain, No Sputum Gastrointestinal: No Nausea, No Vomiting, No Abdominal Pain, No Diarrhea, No Constipation, No Melena, No Hematochezia Genitourinary: No Dysuria, No Frequency, No Incontinence, No Hematuria, No Retention Cardiovascular: HTN Musculoskeletal: Other Endocrine: Diabetes Past Surgical History: Appendectomy, Hysterectomy ALCOHOL: none Drugs: None 02/14-Patient was seen at bed side. Labs and charts reviewed. Patient reported on going pain, on pain meds. ordered CXR, Typing and cross matching, EKG, PT with INR, Spoke to Dr. Weeks, Recommended for cardiology consult for cardiac clearance for surgery. Cardiolgy orderd ECHO 2D. 02/15- The patient was seen at bedside today. Vitals are stable and labs within range. Patient has ongoing pain,and is on pain management. Dr Weeks saw the patient and planned left total hip arthroplasty versus hip hemiarthroplasty. Patient has been kept NPO for the procedure. Objective vital signs Vital Sign Date Time Temp Pulse Resp B/P (MAP) Pulse Ox O2 Delivery O2 Flow Rate FiO2 02/15/25 12:48 98.6 60 18 134/60 (84) 98 98.6 02/15/25 07:50 Room Air* 0 21 Total Intake and Output 02/14/25 02/14/25 02/15/25 15:00 23:00 07:00 Intake Total 100 ml 800 ml Output Total 300 ml Balance 100 ml 500 ml medications Current Medications Medications Dose Ordered Sig/Herve Route Start Time Stop Time Status Last Admin Dose Admin Sodium Chloride 1,000 ml @ 60 mls/hr [id number] IV 02/13/25 16:00 02/14/25 19:54 60 MLS/HR Acetaminophen/ Hydrocodone Bitart 1 tab Q4HP PRN PO 02/13/25 16:00 02/15/25 02:34 1 TAB Ondansetron HCl 4 mg Q4HP PRN IV 02/13/25 16:00 Acetaminophen 650 mg Q6HP PRN PO 02/13/25 16:00 Morphine Sulfate 2 mg Q4HPRN PRN IV 02/13/25 16:00 02/13/25 22:18 2 MG Nitroglycerin 0.4 mg Q5MINP PRN SL 02/13/25 16:00 Morphine Sulfate 2 mg Q30M PRN IV 02/13/25 16:00 Lisinopril 20 mg DAILY PO 02/14/25 10:00 02/15/25 09:01 20 MG Diagnostic Test (Pha) 1 strip ACHS 02/13/25 22:00 02/15/25 11:30 1 STRIP Insulin Human Regular ACHS SC 02/13/25 22:00 02/15/25 12:01 4 UNITS Dextrose 50 ml UD PRN IV 02/13/25 17:30 Levothyroxine Sodium 50 mcg QAM@0600 PO 02/14/25 06:00 02/15/25 06:09 50 MCG Citalopram Hydrobromide 40 mg DAILY PO 02/14/25 10:00 02/15/25 09:01 40 MG Levetiracetam 750 mg/Sodium Chloride 107.5 ml @ 430 mls/hr BID IV 02/13/25 22:00 02/15/25 10:08 430 MLS/HR Examination General Appearance: Cooperative. Well developed. Well nourished. NAD. The patient is lying on the bed with her left leg externally rotated and flexed. Head Exam: Normal inspection Neck Exam: Normal inspection. Non-tender. Normal alignment Pulmonary/Respiratory: Chest non-tender. Clear bilateral breath sounds, no crackles, no wheezing. Cardiovascular/Chest: Regular rate and rhythm. No murmurs. No JVD. Peripheral Pulses: 2+ Radial (R). 2+ Radial (L). 2+ Pedal (R). 2+ Pedal (L) Abdominal Exam: Normal bowel sounds. Soft. normal abdomen, no visible veins, Nontender. No hepatospenomegaly. No masses Ankle Exam: Negative ankle edema Lower extremities: Negative lower extremity edema Neuro/Mental Status: A&O x4. Coherent. Thoughts/Psych: Normal thought pattern. Appropriate mood and affect. Good judgement and insight Skin Exam: Normal inspection. Normal color. Warm. Dry laboratory and microbiology Laboratory Tests 02/15/25 05:08 Test 02/15/25 05:08 Range/Units Serum Glucose 147 H 74-106 mg/dL Labs and/or images reviewed: Labs reviewed by me, Image(s) reviewed by me Problem List/Assessment/Plan Problem List/Assessment/Plan Acute Left comminuted femoral neck fracture mechanical fall without LOC S5 vertebral body fracture -Pelvic CT showed-Significant comminuted, impacted left transcervical femoral neck fracture with anterior apex angulation -Largely nondisplaced fracture of the S5 vertebral body -ortho consult- Plan for left total hip arthroplasty versus hip hemiarthroplasty -pain management -keep patient NPO Diabetes mellitus, controlled -insulin mild sliding scale Hypertension, controlled -continue lisinopril 50mg daily Seizure disorder -continue home dose of Keppra 750 mg bid Dyslipidemia -continue pravastatin Hypothyroidism -resume levothyroxine 50 PUD prophylaxis: not indicated DVT prophylaxis: not indicated Goals of care: Full code, discussed for >23 minutes Plan discussed with Dr Crouch Plan discussed with: Patient Date of Service: Feb 15, 2025 Billing Provider: DAVID HOOPER MD Common Visit Codes: [id number] INP/OBS CARE(HIGH) SANKET CHRISTIANSON RESIDENT Feb 15, 2025 14:18 DAVID HOOPER MD Feb 22, 2025 18:23
--- NOTE | 2025-02-15 16:00 | DVHSR ---
APPROVED REPORT EXAM: Two-dimensional and M-mode echocardiogram with Doppler and color Doppler. Blood Pressure: 112/53 mmHg INDICATION Pre-Op Evaluate cardiac function RISK FACTORS Height: 5'10", Weight: 233 DIMENSIONS LVDd4.2 (3.8-5.7cm)LA (2D)3.8 (1.9-4.0cm)Aortic Root3.2 (2.0-3.7cm) LVDs3.0 (2.5-4.0cm)LA (MM) (1.9-4.0cm)Aortic Cusp Exc1.4 (1.5-2.0cm) EF (%) 60.0 (55-70%)Rt. Atrium4.4 (1.9-4.0cm)Asc. Aorta cm IVSd1.2 (0.7-1.1cm)RV (D) (1.8-2.4cm) PWd1.1 (0.7-1.1cm) Mitral Valve MitralMitral Stenosis E wave1.06m/sMV Mean GR.mmHg A wave0.99m/sMV Peak GR.mmHg E/A ratio1.12D MVAcm2 DECEL [id number] 1/2 Timems Aortic Valve Aortic ValveAortic Stenosis V11.21m/Naldo Mean GR.7mmHg V21.82m/Naldo Peak GR.13mmHg LVOT Diameter1.8 (1.8-2.4cm)Doppler AVA1.69cm2 Other Information Quality : LimitedRhythm : Technically limited study due to body habitus, patient lying flat. Conclusion Sinus rhythm Concentric LVH with left atrial enlargement. Valves are normal. EF of 55% with normal RV function. Dopplers unremarkable. No pericardial effusion masses or vegetations.
[2025-02-15] MEDS: LEVETIRACETAM 500 MG/100 ML IV ONE ×3 (21:56→22:22)
[2025-02-16] VITALS (7 sets, daily range): BP systolic 94–128; BP diastolic 48–56; PULSE 56–75; RESP 16–19; TEMP 97.4–100; O2SAT 90–98
[2025-02-16 06:58] LABS: Hematocrit 37.1 % (36.0-46.0); Hemoglobin 13.0 g/dL (12.2-16.2); Mean Corpuscular Hemoglobin 32.3 pg (28.0-32.0); Mean Corpuscular Volume 92.4 fL (80.0-100.0); Nucleated Red Blood Cells % 0.1 %
[2025-02-16 07:07] LABS: Anion Gap 10 (5-15); Carbon Dioxide 29 mmol/L (20-31); Chloride 102 mmol/L (98-107); Potassium 3.6 mmol/L (3.5-5.1); Sodium 141 mmol/L (136-145)
[2025-02-16 07:21] LABS: BUN/Creatinine Ratio 10.6 (10.0-20.0); Blood Urea Nitrogen < 5 mg/dL (9-23); Calcium 8.6 mg/dL (8.7-10.4); Glucose 141 mg/dL (74-106)
--- NOTE | 2025-02-16 08:07 | ECG ---
[facility] Test Date: 2025-02-14 Test Time: 11:39:26 Pat Name: RAJIV MONROY Department: Respiratoy Room: 0216 A Gender: F Waiter/Waitress Cocktail Lounge: ADALGISA : 1950 Requested By: ANGEL LEYVA Order Number: [id number] Reading MD: Terell Loza Measurements Intervals Gonzales Rate: 56 P: 78 OR: 232 QRS: 60 QRSD: 85 T: 65 QT: 412 QTc: 398 Interpretive Statements Sinus rhythm Prolonged OR interval Borderline low voltage, extremity leads Baseline wander in lead(s) V1,V6 Electronically Signed On 02-17-2025 18:11:20 PDT by Terell Loza Please click the below link to view image of tracing.
[2025-02-16] MEDS: ACETAMINOPHEN 325 MG TAB PO PRN (10:13)
[2025-02-16] MEDS ORDERED: MORPHINE SULFATE 4 MG/ML SYR/VIAL IV PRN (12:00)
[2025-02-16] MEDS ORDERED: HYDROmorphone HCL 2 MG/ML VL/or syr IV PRN ×2 (12:00)
[2025-02-16] MEDS: ACCU-CHEK COMFORT CURVE STRIP VI ONE (12:00)
[2025-02-16] MEDS ORDERED: MORPHINE SULFATE INJ 2 MG/ml SYRG IV PRN (12:00)
[2025-02-16] MEDS ORDERED: METOCLOPRAMIDE HCL 5MG/ml INJ 2ml VIAL IV PRN (12:00)
[2025-02-16] MEDS ORDERED: BUPIVACAINE/DEXTROSE MPF 0.75% 2 ML AMP IT ONE (12:14)
[2025-02-16] MEDS ORDERED: fentaNYL CITRATE 100 MCG/2 ML VL ONE (12:14)
[2025-02-16] MEDS ORDERED: KETAMINE 50mg/ML 1ml syringe ONE (12:14)
[2025-02-16] MEDS ORDERED: SODIUM CHLORIDE LOCK 10 ML ONE (12:14)
[2025-02-16] MEDS ORDERED: MIDAZOLAM HCL 2MG/2ML 2ml VIAL (1mg/ml) ONE (12:14)
[2025-02-16] MEDS ORDERED: ONDANSETRON HCL 4 MG/2 ML VIAL ONE (12:14)
[2025-02-16] MEDS ORDERED: PROPOFOL 10 MG/ML 20 ML IV ONE (12:14)
[2025-02-16] MEDS: ACETAMINOPHEN IV 1000 MG/100ML (10MG/ML) IV ONE (12:30)
[2025-02-16] MEDS: PREGABALIN CAPSULE 75 MG CAP PO ONE (12:30)
--- NOTE | 2025-02-16 12:33 | DVHOP2 ---
Operative Report - 2 Report Details Date: 02/16/25 Preop Diagnosis: Displaced left femoral neck fracture Postop Diagnosis: Displaced left femoral neck fracture Surgeon: Kevin Kitchen MD Supportive Employment Case Manager: Martín WRAD Anesthesiologist: J Luis COLINDRES Anesthesia: Regional Implant: Main and Nephew Dual Mobility 50+0 Polaris stem std offset size 5 Consent: The patient was informed of the risks and benefits of the procedure. These include but are not limited to complications of anesthesia, postoperative infection, incomplete relief of symptoms, recurrence of symptoms, damage to blood vessels, nerves and tendons, deep venous thrombosis, pulmonary embolism and possible need for repeat surgery in the future. Estimated Blood Loss: 300 cc Indications for Surgery: 74 yo F chronic smoker/vape sp mechanical fall with a displaced left femoral neck fracture. Patient noted to have a significant UTI and abrasion over her hip. Patient indicated for ana paula due to increased risk of total joint infection. Name of Procedure Performed Left hip hemiarthroplasty Procedure Details Procedure Details: I had a long discussion with the patient regarding the plan, the expected outcome, the risks, benefits, and alternatives of surgery. The risks include, but are not limited to, infection (which may require future surgery and removal of implants) , bleeding (which may require a transfusion), damage to nerves, arteries, veins, tendons, muscles and other adjacent structures. Also discussed the possibilities of dislocation, leg-length discrepancy, intraoperative fractures, implant loosening, heterotopic bone formation, and revision for variety of reasons, and medical complications etc. This was discussed at length and consent has been obtained. DESCRIPTION OF PROCEDURE: In the preoperative holding area, the consent was reviewed and the appropriate extremity was verified by the patient and marked with my initials. The patient was then transferred to the operating theatre. Appropriate a nesthetia was induced. All bony prominences were well padded. A time out was performed verifying the side and site of surgery according to standard protocol. Preoperative antibiotics were given. Tranexamic acid was given. The patient was then placed in the lateral decubitus position and fixed with rigid pelvic fixation. All bony prominences were well padded and an axillary roll was placed. The affected hip area was then prepped and draped in the usual sterile fashion. We made a standard posterolateral incision sharply through the skin and carried our dissection down through subcutaneous tissue to the underlying fascia achieving hemostasis where necessary. We incised the fascia in line with our incision. We identified and protected the sciatic nerve. We took down the external rotators and hip capsule from their insertion into the greater trochanter, tagged them and retracted them posteriorly for further protection of the sciatic nerve. A Attention was then turned to the femur. We used a box osteotome followed by a canal finder to gain entry to the canal. Intramedullary contents were suctioned and care was taken to ensure they did not touch the tissues. We sequentially reamed until good cortical contact, then broached up to out final size. We tr ialed with the appropriate femoral neck and head and reduced the hip. The hip was taken through a full range of motion. The hip soft tissues were examined in extension and external rotation, the anterior capsule and IT band were palpated, and combined anteversion was determined to be 40 degrees. The hip was stable at maximum flexion, at 90 degrees of flexion and 45 degrees of internal rotation and the position of sleep. Leg lengths were restored as shown using the computer navigation, and the trial LTC matched preoperative and intraoperative templating. The hip was then dislocated and trial components removed. We copiously irrig ated the wound and impacted the final femoral stem into position. The femoral head was impacted onto a clean and dry trunion and confirmed to be seated. The hip was reduced ensuring to tissues in the acetabular cup. We again brought it through a full functional range of motion and there was no evidence for dislocation, instability, or impingement. The checkpoint was removed. A dilute betadine solution (17.5mL in 500mL saline) was used to wash the joint and left to sit for 3 minutes. This was then irrigated out with copious amounts of pulse lavage. We sprinkled 1g vancomycin powder below the fascia and 1g above the fascia. We copiously irrigated the wound and soft tissues. The short external rotators and capsule were repaired to the greater trochanter through drill holes, and the quadratus was repaired. We palpated the sciatic nerve in continuity without tension. The fascia was closed with vicryl and a barbed suture. We closed over the fascia with vicryl suture and re-approximated the skin with leanne. A sterile dressing was placed. We returned the patient to the supine position. We verified all lower extremity compartments were soft and compressible and that we had intact distal pulses and checked our leg length islam. The patient was then transferred to the recovery room in stable condition. Condition Good Disposition Still a Patient KEVIN KITCHEN MD Feb 16, 2025 12:33
[2025-02-16] MEDS: KETOROLAC TROMETH 30 MG/ML 1ML VIAL ONE (13:15)
[2025-02-16] MEDS: MORPHINE SULF PF 5 MG/10 ML VIAL ONE (13:15)
[2025-02-16] MEDS: BUPIVACAINE W/ EPINEPH 0.5% INJ 50ML MDV IJ ONE ×2 (13:15→17:37)
[2025-02-16] MEDS: KETOROLAC TROMETH 30 MG/ML 1ML VIAL IV ONE (13:40)
[2025-02-16] MEDS: LEVETIRACETAM 500 MG/100 ML IV ONE (13:54)
[2025-02-16] MEDS: ceFAZolin 1GM/50ML 50 ML IV SCH (14:00)
[2025-02-16] MEDS: CELECOXIB 100 MG CAP PO ONE (15:39)
--- NOTE | 2025-02-16 16:01 | DVHPNRES ---
Progress Note Date Seen: Feb 16, 2025 Resident Creating Document: SANKET CHRISTIANSON RESIDENT Medical Necessity Reason Pt with a Central, PICC or Fol: No Subjective Review of Systems Cynthia Parks is a 74-year-old female with history of diabetes mellitus type 2, seizure disorder, hypertension, hypothyroidism and dyslipidemia who presented to the ED after she tripped over her dog and fell this morning. Patient mentions that the fall impacted her left hip. She states she did not hit her head. The patient currently has pain in her lower back and her left hip. She can not move her left leg and can not bear weight on it. Past medical history: Diabetes mellitus type 2, hypertension, seizure disorder, hypothyroidism, dyslipidemia Past surgical history: Shoulder replacement in May 2024, hysterectomy, fusion surgery for C5-C6 C7, surgical fixation of the right radius Home medications: Metformin, Keppra, lisinopril, levothyroxine, Celexa, pravastatin Social & Personal history: Lives at home, vapes nicotine, denies alcohol and recreational drug consumption Allergies: No known allergies Patient seen and examined at bedside. Patient is alert and oriented to time, place person and responding to all questions. Patient is in distress due to pain in her back and left hip. Eyes: No Pain, No Vision change, No Conjunctivae inflammation, No Eyelid inflammation, No Redness ENT: No Ear pain, No Ear discharge, No Nose pain, No Nose discharge, No Nose congestion, No Mouth pain, No Mouth swelling, No Throat pain, No Throat swelling Cardiovascular: No Chest Pain, No Palpitations, No Orthopnea, No Paroxysmal No Dyspnea, No Edema, No Lt Headedness Respiratory: No Cough, No Dry, No Shortness of breath, No SOB with exertion, No Wheezing, No Hemoptysis, No Pleuritic Pain, No Sputum Gastrointestinal: No Nausea, No Vomiting, No Abdominal Pain, No Diarrhea, No Constipation, No Melena, No Hematochezia Genitourinary: No Dysuria, No Frequency, No Incontinence, No Hematuria, No Retention Cardiovascular: HTN Musculoskeletal: Other Endocrine: Diabetes Past Surgical History: Appendectomy, Hysterectomy ALCOHOL: none Drugs: None 02/14-Patient was seen at bed side. Labs and charts reviewed. Patient reported on going pain, on pain meds. ordered CXR, Typing and cross matching, EKG, PT with INR, Spoke to Dr. Weeks, Recommended for cardiology consult for cardiac clearance for surgery. Cardiolgy orderd ECHO 2D. 02/15- The patient was seen at bedside today. Vitals are stable and labs within range. Patient has ongoing pain,and is on pain management. Dr Weeks saw the patient and planned left total hip arthroplasty versus hip hemiarthroplasty. Patient has been kept NPO for the procedure. 02/16- the patient was seen at bedside today. Vitals are stable and labs within range. The patient has ongoing pain and is due for orthopedic surgery today. Patient requested rehab post discharge. Objective vital signs Vital Sign Date Time Temp Pulse Resp B/P (MAP) Pulse Ox O2 Delivery O2 Flow Rate FiO2 02/16/25 14:47 97.6 47 12 80/54 (63) 95 97.6 02/16/25 13:55 Nasal Cannula 2.0 98 Total Intake and Output 02/15/25 02/15/25 02/16/25 15:00 23:00 07:00 Intake Total 587.5 ml 1950 ml 690 ml Output Total 1600 ml Balance 587.5 ml 350 ml 690 ml medications Current Medications Medications Dose Ordered Sig/Herve Route Start Time Stop Time Status Last Admin Dose Admin Sodium Chloride 1,000 ml @ 60 mls/hr [id number] IV 02/13/25 16:00 02/16/25 05:47 60 MLS/HR Acetaminophen/ Hydrocodone Bitart 1 tab Q4HP PRN PO 02/13/25 16:00 02/15/25 02:34 1 TAB Ondansetron HCl 4 mg Q4HP PRN IV 02/13/25 16:00 Acetaminophen 650 mg Q6HP PRN PO 02/13/25 16:00 02/16/25 10:13 650 MG Morphine Sulfate 2 mg Q4HPRN PRN IV 02/13/25 16:00 02/13/25 22:18 2 MG Nitroglycerin 0.4 mg Q5MINP PRN SL 02/13/25 16:00 Morphine Sulfate 2 mg Q30M PRN IV 02/13/25 16:00 Lisinopril 20 mg DAILY PO 02/14/25 10:00 02/16/25 10:03 20 MG Diagnostic Test (Pha) 1 strip ACHS 02/13/25 22:00 02/16/25 11:30 1 STRIP Insulin Human Regular ACHS SC 02/13/25 22:00 02/15/25 22:28 3 UNITS Dextrose 50 ml UD PRN IV 02/13/25 17:30 Levothyroxine Sodium 50 mcg QAM@0600 PO 02/14/25 06:00 02/15/25 06:09 50 MCG Citalopram Hydrobromide 40 mg DAILY PO 02/14/25 10:00 02/16/25 10:03 40 MG Levetiracetam 750 mg/Sodium Chloride 107.5 ml @ 430 mls/hr BID IV 02/13/25 22:00 02/16/25 10:42 430 MLS/HR Morphine Sulfate 2 mg Q4H PRN IV 02/16/25 12:00 02/16/25 16:01 Cefazolin Sodium 50 ml @ 100 mls/hr Q8HR IV 02/16/25 14:00 02/17/25 06:29 Cefepime HCl 50 ml @ 12.5 mls/hr DAILY IV 02/17/25 10:00 Aspirin 81 mg BID PO 02/16/25 22:00 Examination General Appearance: Cooperative. Well developed. Well nourished. NAD. The patient is lying on the bed with her left leg externally rotated and flexed. Head Exam: Normal inspection Neck Exam: Normal inspection. Non-tender. Normal alignment Pulmonary/Respiratory: Chest non-tender. Clear bilateral breath sounds, no crackles, no wheezing. Cardiovascular/Chest: Regular rate and rhythm. No murmurs. No JVD. Peripheral Pulses: 2+ Radial (R). 2+ Radial (L). 2+ Pedal (R). 2+ Pedal (L) Abdominal Exam: Normal bowel sounds. Soft. normal abdomen, no visible veins, Nontender. No hepatospenomegaly. No masses Ankle Exam: Negative ankle edema Lower extremities: Negative lower extremity edema Neuro/Mental Status: A&O x4. Coherent. Thoughts/Psych: Normal thought pattern. Appropriate mood and affect. Good judgement and insight Skin Exam: Normal inspection. Normal color. Warm. Dry laboratory and microbiology Laboratory Tests 02/16/25 06:00 Test 02/16/25 06:00 Range/Units Serum Glucose 141 H 74-106 mg/dL Labs and/or images reviewed: Labs reviewed by me Problem List/Assessment/Plan Problem List/Assessment/Plan Acute Left comminuted femoral neck fracture s/p Left hip hemiarthroplasty mechanical fall without LOC S5 vertebral body fracture -Pelvic CT showed-Significant comminuted, impacted left transcervical femoral neck fracture with anterior apex angulation -Largely nondisplaced fracture of the S5 vertebral body -ortho consult- left total hip arthroplasty on 02/16/25 -pain management -keep patient NPO Diabetes mellitus, controlled -insulin mild sliding scale Hypertension, controlled -continue lisinopril 50mg daily Seizure disorder -continue home dose of Keppra 750 mg bid Dyslipidemia -continue pravastatin Hypothyroidism -resume levothyroxine 50 PUD prophylaxis: not indicated DVT prophylaxis: not indicated Goals of care: Full code, discussed for >23 minutes Plan discussed with Dr Hatch Plan discussed with: Patient Date of Service: Feb 16, 2025 Billing Provider: MADINA HATCH MD Common Visit Codes: [id number] INP/OBS CARE(HIGH) SANKET CHRISTIANSON RESIDENT Feb 16, 2025 16:01 MADINA HATCH MD Feb 24, 2025 19:51
[2025-02-16] MEDS: SODIUM CHLORIDE 0.9% 250 ML IV ONE (17:14)
[2025-02-16] MEDS: CEFEPIME 1GM/50ML 50 ML IV ONE ×2 (17:37→17:38)
[2025-02-16] MEDS: TETRACAINE 1% INJ 2 ML VIAL IJ ONE (17:38)
[2025-02-16] MEDS: ceFAZolin 1GM/50ML 100 ML IV ONE (17:39)
[2025-02-16] MEDS: PREGABALIN CAPSULE 75 MG CAP ONE ×2 (17:40)
[2025-02-16] MEDS: ACETAMINOPHEN IV 100 ML IV ONE (17:41)
[2025-02-16] MEDS: ceFAZolin 1GM/50ML 50 ML IV ONE (17:41)
[2025-02-16] MEDS: TRANEXAMIC ACID 20 ML ONE (17:43)
[2025-02-16] MEDS: CELECOXIB 100 MG CAP ONE ×2 (17:44)
[2025-02-16] MEDS: VANCOMYCIN HCL 1000 MG VL ONE (17:44)
[2025-02-16] MEDS: levETIRAcetam 500 mg/100ml 100 ML IV ONE (21:51)
[2025-02-17] VITALS (7 sets, daily range): BP systolic 100–134; BP diastolic 45–71; PULSE 63–85; RESP 16–20; TEMP 98.2–101.1; O2SAT 90–95
--- NOTE | 2025-02-17 07:59 | DVHPN2 ---
Progress Note Date Seen: Feb 17, 2025 Medical Necessity Reason Pt with a Central, PICC or Fol: No Subjective Patient reports: No new complaints Objective vital signs Vital Sign Date Time Temp Pulse Resp B/P (MAP) Pulse Ox O2 Delivery O2 Flow Rate FiO2 02/17/25 05:00 99.7 74 18 100/52 (68) 93 99.7 02/16/25 20:00 Nasal Cannula* 2 28 Total Intake and Output 02/16/25 02/16/25 02/17/25 15:00 23:00 07:00 Intake Total 200 ml 709 ml 330 ml Output Total 420 ml Balance 200 ml 709 ml -90 ml medications Current Medications Medications Dose Ordered Sig/Herve Route Start Time Stop Time Status Last Admin Dose Admin Sodium Chloride 1,000 ml @ 60 mls/hr [id number] IV 02/13/25 16:00 02/16/25 05:47 60 MLS/HR Acetaminophen/ Hydrocodone Bitart 1 tab Q4HP PRN PO 02/13/25 16:00 02/15/25 02:34 1 TAB Ondansetron HCl 4 mg Q4HP PRN IV 02/13/25 16:00 Acetaminophen 650 mg Q6HP PRN PO 02/13/25 16:00 02/16/25 10:13 650 MG Morphine Sulfate 2 mg Q4HPRN PRN IV 02/13/25 16:00 02/13/25 22:18 2 MG Nitroglycerin 0.4 mg Q5MINP PRN SL 02/13/25 16:00 Morphine Sulfate 2 mg Q30M PRN IV 02/13/25 16:00 Lisinopril 20 mg DAILY PO 02/14/25 10:00 02/16/25 10:03 20 MG Diagnostic Test (Pha) 1 strip ACHS 02/13/25 22:00 02/17/25 05:25 1 STRIP Insulin Human Regular ACHS SC 02/13/25 22:00 02/16/25 18:05 2 UNITS Dextrose 50 ml UD PRN IV 02/13/25 17:30 Levothyroxine Sodium 50 mcg QAM@0600 PO 02/14/25 06:00 02/17/25 05:40 50 MCG Citalopram Hydrobromide 40 mg DAILY PO 02/14/25 10:00 02/16/25 10:03 40 MG Levetiracetam 750 mg/Sodium Chloride 107.5 ml @ 430 mls/hr BID IV 02/13/25 22:00 02/16/25 23:08 430 MLS/HR Cefepime HCl 50 ml @ 12.5 mls/hr DAILY IV 02/17/25 10:00 Aspirin 81 mg BID PO 02/16/25 22:00 02/16/25 21:54 81 MG Examination: GENERAL:Normal, MSK:Abnormal laboratory and microbiology Laboratory Tests 02/16/25 06:00 Test 02/16/25 06:00 Range/Units Serum Glucose 141 H 74-106 mg/dL Problem List/Assessment/Plan Problem List/Assessment/Plan Patient is a 74 year old female who is s/p Left hip hemiarthroplasty POD 1 1. Pain control 2. DVT ppx 3. WBAT LLE with use of walker 4. physical therapy (posterior hip precautions/protocol) 5. recommending patient follow up in 2 weeks with local orthopedic provider for staple removal 6. advised patient no dressing changes are necessary and she can continue with aquacel dressing 7. clear for discharge from orthopedic standpoint with the following discharge recommendations: POSTOPERATIVE Posterior Hip INSTRUCTIONS Activity: 1. You can bear as much weight as you tolerate on your hip unless specifically instructed otherwise. You may use the walking aid which you were discharged with and switch to a cane whenever you feel comfortable doing so. You should use an assistive device until you can walk comfortably without it. Keep in mind that every patient moves at their own speed of recovery so take your time. 2. A physical therapist will visit you at home. 3. Although guarantees against a dislocation do not exist, the hip was noted to be sufficiently stable in surgery. Below are motions that you should dischargenot do for 4-6 weeks, depending on the surgical approach used. If there are questions, please call the office. a. Bend forward past 90 degrees b. Sit on a regular low chair, couch, car seat etc... c. Cross your legs d. Use a regular low toilet seat. e. Sleep on your stomach or on either side. 3. High impact activity such as jumping, aerobics, tennis, and skiing are not permitted during the first 3 months after surgery. These activities can contribute to accelerated wear and should be done with caution after this time. Discuss this with your surgeon if you have questions. 4. Although a bath or whirlpool is NOT permitted during the first 2-3 weeks, you may shower as soon as you get home from the hospital provided you are able to keep your bandage clean and dry and there is no wound drainage. If you are unable to place a secured covering over your bandage bed bath/sponge bath may likely be the more appropriate option. 5. Swimming is not permitted until the wound is healed, which typically occurs approximately 3-4 weeks after surgery. Wound Management: If the wound is draining please change the gauze pad on the wound until it stops. If drainage persists past 10 days please notify our office. If there is a sticky gel dressing over your wound, you may leave this in place for as long as it is clean and dry. If it becomes loose or causes skin irritation, it is OK to remove it and place clean gauze over your wound. 1. You might notice some bruising around the surgical site, this is normal. 2. Check your temperature on a daily basis. Please note that a low-grade temp below 101 is not uncommon after surgery especially during the first 3 days. Notify the office if your temperature spikes above 101.5 after the 3rd post- operative date. 3. Many patients experience significant swelling in the thigh, this may extend below the knee and sometimes to the ankle. Swelling increases during the first week and subsides during the following week. 4. Provided you have been on a blood thinner since surgery and have been up and about at least three times per day, the risk of a blood clot is low and this swelling is an expected part of recovery. It will largely or completely resolve by your first post-operative visit. 5. [place], if present, will be removed at 2 weeks during initial post-op visit. Medications: 1. You will be discharged with pain medication, Aspirin as a blood thinner and sometimes an anti-inflammatory medication such as Celebrex or Mobic might be prescribed. Please follow the instructions regarding these medicines as provided by your nurse at the hospital. 2. Narcotic pain medication has side effects, including constipation. Please ensure you continue to take stool softeners (Colace, Senna) while taking your pain medication to help protect against constipation. Getting up and moving around at least a few times per day helps with this also. 3. Lovenox 40 Sq x 12 days followed by one regular strength 325 mg coated aspirin daily for 4 weeks after surgery. Then, take one baby aspirin, 81 mg daily for 6 weeks more. A major, yet preventable, complication of Orthopaedic Surgery is a blood clot (DVT). It is important not to miss any doses of this important medication. 4. You should restart all of your prescription medications once discharged unless specifically instructed otherwise. 5. Herbal supplements may be restarted 2 weeks after surgery. Miscellaneous issues: 1. Driving is not permitted within the first 2 weeks. 2. Your first postoperative visit will take place 2weeks after discharge. Please call the office to arrange this appointment. 3. Antibiotic preventative treatment is required before dental or other invasive procedures. Please ask your surgeon about this at your first postoperative visit. Your hip replacement contains metal which may activate metal detectors. You may wish to carry a letter from your surgeon to communicate this to security personnel. If you experience chest pain, shortness of breath or severe painful calf swelling, go to the nearest emergency room to be evaluated. Please call our office once your situation is stabilized. Plan discussed with: Patient Date of Service: Feb 17, 2025 Billing Provider: DANNY KITCHEN MD Common Visit Codes: NOT BILLABLE GARRET NEW NP Feb 17, 2025 07:59
[2025-02-17 08:30] LABS: Hematocrit 31.3 % (36.0-46.0); Hemoglobin 10.9 g/dL (12.2-16.2); Mean Corpuscular Hemoglobin 32.2 pg (28.0-32.0); Mean Corpuscular Volume 92.5 fL (80.0-100.0); Nucleated Red Blood Cells % 0.0 %
[2025-02-17 08:46] LABS: Anion Gap 9 (5-15); Carbon Dioxide 29 mmol/L (20-31); Chloride 101 mmol/L (98-107); Potassium 3.6 mmol/L (3.5-5.1); Sodium 139 mmol/L (136-145)
[2025-02-17 08:52] LABS: BUN/Creatinine Ratio 24.0 (10.0-20.0); Blood Urea Nitrogen 12 mg/dL (9-23); Calcium 8.1 mg/dL (8.7-10.4); Glucose 124 mg/dL (74-106)
[2025-02-17] MEDS: LEVETIRACETAM 500 MG/100 ML IV ONE (09:15)
[2025-02-17] MEDS: CEFEPIME 1GM/50ML 50 ML IV SCH (09:23)
--- NOTE | 2025-02-17 19:41 | DVHPNRES ---
Progress Note Date Seen: Feb 17, 2025 Resident Creating Document: SANKET CHRISTIANSON RESIDENT Medical Necessity Reason Pt with a Central, PICC or Fol: No Subjective Review of Systems Cynthia Parks is a 74-year-old female with history of diabetes mellitus type 2, seizure disorder, hypertension, hypothyroidism and dyslipidemia who presented to the ED after she tripped over her dog and fell this morning. Patient mentions that the fall impacted her left hip. She states she did not hit her head. The patient currently has pain in her lower back and her left hip. She can not move her left leg and can not bear weight on it. Past medical history: Diabetes mellitus type 2, hypertension, seizure disorder, hypothyroidism, dyslipidemia Past surgical history: Shoulder replacement in May 2024, hysterectomy, fusion surgery for C5-C6 C7, surgical fixation of the right radius Home medications: Metformin, Keppra, lisinopril, levothyroxine, Celexa, pravastatin Social & Personal history: Lives at home, vapes nicotine, denies alcohol and recreational drug consumption Allergies: No known allergies Patient seen and examined at bedside. Patient is alert and oriented to time, place person and responding to all questions. Patient is in distress due to pain in her back and left hip. Eyes: No Pain, No Vision change, No Conjunctivae inflammation, No Eyelid inflammation, No Redness ENT: No Ear pain, No Ear discharge, No Nose pain, No Nose discharge, No Nose congestion, No Mouth pain, No Mouth swelling, No Throat pain, No Throat swelling Cardiovascular: No Chest Pain, No Palpitations, No Orthopnea, No Paroxysmal No Dyspnea, No Edema, No Lt Headedness Respiratory: No Cough, No Dry, No Shortness of breath, No SOB with exertion, No Wheezing, No Hemoptysis, No Pleuritic Pain, No Sputum Gastrointestinal: No Nausea, No Vomiting, No Abdominal Pain, No Diarrhea, No Constipation, No Melena, No Hematochezia Genitourinary: No Dysuria, No Frequency, No Incontinence, No Hematuria, No Retention Cardiovascular: HTN Musculoskeletal: Other Endocrine: Diabetes Past Surgical History: Appendectomy, Hysterectomy ALCOHOL: none Drugs: None 02/14-Patient was seen at bed side. Labs and charts reviewed. Patient reported on going pain, on pain meds. ordered CXR, Typing and cross matching, EKG, PT with INR, Spoke to Dr. Weeks, Recommended for cardiology consult for cardiac clearance for surgery. Cardiolgy orderd ECHO 2D. 02/15- The patient was seen at bedside today. Vitals are stable and labs within range. Patient has ongoing pain,and is on pain management. Dr Weeks saw the patient and planned left total hip arthroplasty versus hip hemiarthroplasty. Patient has been kept NPO for the procedure. 02/16- the patient was seen at bedside today. Vitals are stable and labs within range. The patient has ongoing pain and is due for orthopedic surgery today. Patient requested rehab post discharge. 02/17- patient was seen at bedside today. Fever spikes last night, blood culture was ordered. Requested for placement in SNF post rehab, but was unable to complete physical therapy today because of low blood pressure and dizziness. We will try physical therapy again tomorrow. Objective vital signs Vital Sign Date Time Temp Pulse Resp B/P (MAP) Pulse Ox O2 Delivery O2 Flow Rate FiO2 02/17/25 17:00 99.3 63 20 134/71 (92) 90 99.3 02/17/25 08:00 Room Air* 0 21 Total Intake and Output 02/16/25 02/16/25 02/17/25 15:00 23:00 07:00 Intake Total 200 ml 709 ml 330 ml Output Total 420 ml Balance 200 ml 709 ml -90 ml medications Current Medications Medications Dose Ordered Sig/Herve Route Start Time Stop Time Status Last Admin Dose Admin Sodium Chloride 1,000 ml @ 60 mls/hr [id number] IV 02/13/25 16:00 02/17/25 17:42 60 MLS/HR Acetaminophen/ Hydrocodone Bitart 1 tab Q4HP PRN PO 02/13/25 16:00 02/17/25 15:52 1 TAB Ondansetron HCl 4 mg Q4HP PRN IV 02/13/25 16:00 Acetaminophen 650 mg Q6HP PRN PO 02/13/25 16:00 02/16/25 10:13 650 MG Morphine Sulfate 2 mg Q4HPRN PRN IV 02/13/25 16:00 02/13/25 22:18 2 MG Nitroglycerin 0.4 mg Q5MINP PRN SL 02/13/25 16:00 Morphine Sulfate 2 mg Q30M PRN IV 02/13/25 16:00 Lisinopril 20 mg DAILY PO 02/14/25 10:00 02/17/25 09:23 20 MG Diagnostic Test (Pha) 1 strip ACHS 02/13/25 22:00 02/17/25 17:20 1 STRIP Insulin Human Regular ACHS SC 02/13/25 22:00 02/17/25 17:40 3 UNITS Dextrose 50 ml UD PRN IV 02/13/25 17:30 Levothyroxine Sodium 50 mcg QAM@0600 PO 02/14/25 06:00 02/17/25 05:40 50 MCG Citalopram Hydrobromide 40 mg DAILY PO 02/14/25 10:00 02/17/25 09:22 40 MG Levetiracetam 750 mg/Sodium Chloride 107.5 ml @ 430 mls/hr BID IV 02/13/25 22:00 02/17/25 09:29 430 MLS/HR Cefepime HCl 50 ml @ 12.5 mls/hr DAILY IV 02/17/25 10:00 02/17/25 09:23 12.5 MLS/HR Aspirin 81 mg BID PO 02/16/25 22:00 02/17/25 09:23 81 MG Examination General Appearance: Cooperative. Well developed. Well nourished. NAD. The patient is lying on the bed with her left leg externally rotated and flexed. Head Exam: Normal inspection Neck Exam: Normal inspection. Non-tender. Normal alignment Pulmonary/Respiratory: Chest non-tender. Clear bilateral breath sounds, no crackles, no wheezing. Cardiovascular/Chest: Regular rate and rhythm. No murmurs. No JVD. Peripheral Pulses: 2+ Radial (R). 2+ Radial (L). 2+ Pedal (R). 2+ Pedal (L) Abdominal Exam: Normal bowel sounds. Soft. normal abdomen, no visible veins, Nontender. No hepatospenomegaly. No masses Ankle Exam: Negative ankle edema Lower extremities: Negative lower extremity edema Neuro/Mental Status: A&O x4. Coherent. Thoughts/Psych: Normal thought pattern. Appropriate mood and affect. Good judgement and insight Skin Exam: Normal inspection. Normal color. Warm. Dry laboratory and microbiology Laboratory Tests 02/17/25 06:37 Test 02/17/25 06:37 Range/Units Serum Glucose 124 H 74-106 mg/dL Labs and/or images reviewed: Labs reviewed by me, Image(s) reviewed by me Problem List/Assessment/Plan Problem List/Assessment/Plan Acute Left comminuted femoral neck fracture s/p Left hip hemiarthroplasty mechanical fall without LOC S5 vertebral body fracture -Pelvic CT showed-Significant comminuted, impacted left transcervical femoral neck fracture with anterior apex angulation -Largely nondisplaced fracture of the S5 vertebral body -ortho consult- left total hip arthroplasty on 02/16/25 -pain management -PT requested Diabetes mellitus, controlled -insulin mild sliding scale Hypertension, controlled -continue lisinopril 50mg daily Seizure disorder -continue home dose of Keppra 750 mg bid Dyslipidemia -continue pravastatin Hypothyroidism -resume levothyroxine 50 PUD prophylaxis: not indicated DVT prophylaxis: not indicated Goals of care: Full code, discussed for >23 minutes Plan discussed with Dr Hatch Plan discussed with: Patient My Orders My Orders Orders - SANKET CHRISTIANSON RESIDENT Procedure Category Date Status Time Blood Culture ELDER 02/17/25 In Process 06:52 Date of Service: Feb 17, 2025 Billing Provider: MADINA HATCH MD Common Visit Codes: [id number] INP/OBS CARE(HIGH) SANKET CHRISTIANSON RESIDENT Feb 17, 2025 19:41 MADINA HATCH MD Feb 24, 2025 19:52
[2025-02-17] MEDS: levETIRAcetam 500 mg/100ml 100 ML IV ONE (22:35)
[2025-02-18] VITALS (7 sets, daily range): BP systolic 119–145; BP diastolic 59–77; PULSE 55–98; RESP 17–20; TEMP 96.8–98.5; O2SAT 91–97
[2025-02-18 06:31] LABS: Hematocrit 30.2 % (36.0-46.0); Hemoglobin 10.6 g/dL (12.2-16.2); Mean Corpuscular Hemoglobin 32.0 pg (28.0-32.0); Mean Corpuscular Volume 91.3 fL (80.0-100.0); Nucleated Red Blood Cells % 0.0 %
[2025-02-18 06:38] LABS: Anion Gap 8 (5-15); Carbon Dioxide 30 mmol/L (20-31); Chloride 100 mmol/L (98-107); Potassium 3.6 mmol/L (3.5-5.1); Sodium 138 mmol/L (136-145)
[2025-02-18 06:44] LABS: BUN/Creatinine Ratio 16.7 (10.0-20.0)
[2025-02-18 06:50] LABS: Blood Urea Nitrogen 6 mg/dL (9-23); Calcium 8.3 mg/dL (8.7-10.4); Glucose 143 mg/dL (74-106)
[2025-02-18] MEDS ORDERED: VANCOMYCIN PER PHARMACY 0 MG IV SCH (09:15)
[2025-02-18] MEDS: VANCOMYCIN 1GM/250ML KIT 250 ML IV SCH (11:05)
--- NOTE | 2025-02-18 11:43 | DVHPNRES ---
Progress Note Date Seen: Feb 18, 2025 Resident Creating Document: SANKET CHRISTIANSON RESIDENT Medical Necessity Reason Pt with a Central, PICC or Fol: No Subjective Review of Systems Cynthia Parks is a 74-year-old female with history of diabetes mellitus type 2, seizure disorder, hypertension, hypothyroidism and dyslipidemia who presented to the ED after she tripped over her dog and fell this morning. Patient mentions that the fall impacted her left hip. She states she did not hit her head. The patient currently has pain in her lower back and her left hip. She can not move her left leg and can not bear weight on it. Past medical history: Diabetes mellitus type 2, hypertension, seizure disorder, hypothyroidism, dyslipidemia Past surgical history: Shoulder replacement in May 2024, hysterectomy, fusion surgery for C5-C6 C7, surgical fixation of the right radius Home medications: Metformin, Keppra, lisinopril, levothyroxine, Celexa, pravastatin Social & Personal history: Lives at home, vapes nicotine, denies alcohol and recreational drug consumption Allergies: No known allergies Patient seen and examined at bedside. Patient is alert and oriented to time, place person and responding to all questions. Patient is in distress due to pain in her back and left hip. Eyes: No Pain, No Vision change, No Conjunctivae inflammation, No Eyelid inflammation, No Redness ENT: No Ear pain, No Ear discharge, No Nose pain, No Nose discharge, No Nose congestion, No Mouth pain, No Mouth swelling, No Throat pain, No Throat swelling Cardiovascular: No Chest Pain, No Palpitations, No Orthopnea, No Paroxysmal No Dyspnea, No Edema, No Lt Headedness Respiratory: No Cough, No Dry, No Shortness of breath, No SOB with exertion, No Wheezing, No Hemoptysis, No Pleuritic Pain, No Sputum Gastrointestinal: No Nausea, No Vomiting, No Abdominal Pain, No Diarrhea, No Constipation, No Melena, No Hematochezia Genitourinary: No Dysuria, No Frequency, No Incontinence, No Hematuria, No Retention Cardiovascular: HTN Musculoskeletal: Other Endocrine: Diabetes Past Surgical History: Appendectomy, Hysterectomy ALCOHOL: none Drugs: None 02/14-Patient was seen at bed side. Labs and charts reviewed. Patient reported on going pain, on pain meds. ordered CXR, Typing and cross matching, EKG, PT with INR, Spoke to Dr. Weeks, Recommended for cardiology consult for cardiac clearance for surgery. Cardiolgy orderd ECHO 2D. 02/15- The patient was seen at bedside today. Vitals are stable and labs within range. Patient has ongoing pain,and is on pain management. Dr Weeks saw the patient and planned left total hip arthroplasty versus hip hemiarthroplasty. Patient has been kept NPO for the procedure. 02/16- the patient was seen at bedside today. Vitals are stable and labs within range. The patient has ongoing pain and is due for orthopedic surgery today. Patient requested rehab post discharge. 02/17- patient was seen at bedside today. Fever spikes last night, blood culture was ordered. Requested for placement in SNF post rehab, but was unable to complete physical therapy today because of low blood pressure and dizziness. We will try physical therapy again tomorrow. 02/18- patient was seen at bedside today. She has had no fever spikes since yesterday. Her blood culture was found to be positive for gram positive cocci, so she was started on vancomycin. We will observe her for 1 more day on IV antibiotics and possibly discharge her to SNF tomorrow. Her Keppra was switched from IV to oral. Per social services assistant, patient has been accepted at [facility] and has a bed assigned to her. Objective vital signs Vital Sign Date Time Temp Pulse Resp B/P (MAP) Pulse Ox O2 Delivery O2 Flow Rate FiO2 02/18/25 08:49 135/71 02/18/25 08:39 98.1 90 17 97 98.1 02/18/25 08:30 Nasal Cannula* 2 28 Total Intake and Output 02/17/25 02/17/25 02/18/25 15:00 23:00 07:00 Intake Total 1297.5 ml 900 ml Balance 1297.5 ml 900 ml medications Current Medications Medications Dose Ordered Sig/Herve Route Start Time Stop Time Status Last Admin Dose Admin Sodium Chloride 1,000 ml @ 60 mls/hr [id number] IV 02/13/25 16:00 02/17/25 17:42 60 MLS/HR Acetaminophen/ Hydrocodone Bitart 1 tab Q4HP PRN PO 02/13/25 16:00 02/18/25 08:52 1 TAB Ondansetron HCl 4 mg Q4HP PRN IV 02/13/25 16:00 Acetaminophen 650 mg Q6HP PRN PO 02/13/25 16:00 02/16/25 10:13 650 MG Morphine Sulfate 2 mg Q4HPRN PRN IV 02/13/25 16:00 02/13/25 22:18 2 MG Nitroglycerin 0.4 mg Q5MINP PRN SL 02/13/25 16:00 Morphine Sulfate 2 mg Q30M PRN IV 02/13/25 16:00 Lisinopril 20 mg DAILY PO 02/14/25 10:00 02/18/25 08:49 20 MG Diagnostic Test (Pha) 1 strip ACHS 02/13/25 22:00 02/18/25 06:22 1 STRIP Insulin Human Regular ACHS SC 02/13/25 22:00 02/18/25 06:39 2 UNITS Dextrose 50 ml UD PRN IV 02/13/25 17:30 Levothyroxine Sodium 50 mcg QAM@0600 PO 02/14/25 06:00 02/18/25 06:31 50 MCG Citalopram Hydrobromide 40 mg DAILY PO 02/14/25 10:00 02/18/25 08:49 40 MG Levetiracetam 750 mg/Sodium Chloride 107.5 ml @ 430 mls/hr BID IV 02/13/25 22:00 02/17/25 22:00 430 MLS/HR Cefepime HCl 50 ml @ 12.5 mls/hr DAILY IV 02/17/25 10:00 02/17/25 09:23 12.5 MLS/HR Aspirin 81 mg BID PO 02/16/25 22:00 02/18/25 08:49 81 MG Vancomycin HCl 0 ml @ 0 mls/hr UD IV 02/18/25 09:15 Vancomycin HCl 250 ml @ 250 mls/hr Q1H IV 02/18/25 09:45 02/18/25 11:44 02/18/25 11:05 250 MLS/HR Levetiracetam 750 mg BID PO 02/18/25 22:00 UNV Examination General Appearance: Cooperative. Well developed. Well nourished. NAD. Head Exam: Normal inspection Neck Exam: Normal inspection. Non-tender. Normal alignment Pulmonary/Respiratory: Chest non-tender. Clear bilateral breath sounds, no crackles, no wheezing. Cardiovascular/Chest: Regular rate and rhythm. No murmurs. No JVD. Peripheral Pulses: 2+ Radial (R). 2+ Radial (L). 2+ Pedal (R). 2+ Pedal (L) Abdominal Exam: Normal bowel sounds. Soft. normal abdomen, no visible veins, Nontender. No hepatospenomegaly. No masses Ankle Exam: Negative ankle edema Lower extremities: Negative lower extremity edema,bandage on left lateral side of hip Neuro/Mental Status: A&O x4. Coherent. Thoughts/Psych: Normal thought pattern. Appropriate mood and affect. Good judgement and insight Skin Exam: Normal inspection. Normal color. Warm. Dry laboratory and microbiology Laboratory Tests 02/18/25 05:53 Test 02/18/25 05:53 Range/Units Serum Glucose 143 H 74-106 mg/dL Microbiology Date/Time Source Procedure Growth Status 02/17/25 07:52 Blood Blood Culture - Preliminary Resulted Labs and/or images reviewed: Labs reviewed by me, Image(s) reviewed by me Problem List/Assessment/Plan Problem List/Assessment/Plan Acute Left comminuted femoral neck fracture s/p Left hip hemiarthroplasty mechanical fall without LOC S5 vertebral body fracture -Pelvic CT showed-Significant comminuted, impacted left transcervical femoral neck fracture with anterior apex angulation -Largely nondisplaced fracture of the S5 vertebral body -ortho consult- left total hip arthroplasty on 02/16/25 -pain management -PT requested Bacteremia -blood culture positive for gram positive cocci -started on vancomycin Diabetes mellitus, controlled -insulin mild sliding scale Hypertension, controlled -continue lisinopril 50mg daily Seizure disorder -continue home dose of Keppra 750 mg bid Dyslipidemia -continue pravastatin Hypothyroidism -resume levothyroxine 50 PUD prophylaxis: not indicated DVT prophylaxis: not indicated Goals of care: Full code, discussed for >23 minutes Plan discussed with Dr Hatch Plan discussed with: Patient My Orders My Orders Orders - SANKET CHRISTIANSON Procedure Category Date Status Time * Picking Table Worker CONS 02/18/25 Transmitted Consult Levetiracetam Tablet PHA 02/18/25 Logged (Keppra Tablet) 22:00 Date of Service: Feb 18, 2025 Billing Provider: MADINA HATCH MD Common Visit Codes: [id number] INP/OBS CARE(HIGH) SANKET CHRISTIANSON RESIDENT Feb 18, 2025 11:43 MADINA HATCH MD Feb 24, 2025 19:53
[2025-02-18] MEDS: levETIRAcetam 500 MG TAB PO ONE (15:19)
[2025-02-18] MEDS: levETIRAcetam 500 MG TAB PO SCH (22:50)
[2025-02-19] VITALS (8 sets, daily range): BP systolic 113–154; BP diastolic 67–82; PULSE 58–89; RESP 16–18; TEMP 96.7–98.8; O2SAT 91–99
[2025-02-19 06:25] LABS: Hematocrit 30.6 % (36.0-46.0); Hemoglobin 10.7 g/dL (12.2-16.2); Mean Corpuscular Hemoglobin 32.1 pg (28.0-32.0); Mean Corpuscular Volume 91.7 fL (80.0-100.0); Nucleated Red Blood Cells % 0.2 %
[2025-02-19 06:30] LABS: Anion Gap 8 (5-15); Carbon Dioxide 31 mmol/L (20-31); Chloride 100 mmol/L (98-107); Potassium 3.6 mmol/L (3.5-5.1); Sodium 139 mmol/L (136-145)
[2025-02-19 06:36] LABS: BUN/Creatinine Ratio 15.4 (10.0-20.0)
[2025-02-19 06:37] LABS: Blood Urea Nitrogen 6 mg/dL (9-23); Calcium 8.6 mg/dL (8.7-10.4); Glucose 144 mg/dL (74-106)
[2025-02-19] MEDS: VANCOMYCIN 1.25GM/250ML 250 ML IV SCH (11:00)
[2025-02-19] MEDS: POLYETHYLENE GLYCOL 17 GM PWDR PO ONE (12:45)
--- NOTE | 2025-02-19 17:46 | DVHPNRES ---
Progress Note Date Seen: Feb 19, 2025 Resident Creating Document: SANKET CHRISTIANSON RESIDENT Medical Necessity Reason Pt with a Central, PICC or Fol: No Subjective Review of Systems Cynthia Parks is a 74-year-old female with history of diabetes mellitus type 2, seizure disorder, hypertension, hypothyroidism and dyslipidemia who presented to the ED after she tripped over her dog and fell this morning. Patient mentions that the fall impacted her left hip. She states she did not hit her head. The patient currently has pain in her lower back and her left hip. She can not move her left leg and can not bear weight on it. Past medical history: Diabetes mellitus type 2, hypertension, seizure disorder, hypothyroidism, dyslipidemia Past surgical history: Shoulder replacement in May 2024, hysterectomy, fusion surgery for C5-C6 C7, surgical fixation of the right radius Home medications: Metformin, Keppra, lisinopril, levothyroxine, Celexa, pravastatin Social & Personal history: Lives at home, vapes nicotine, denies alcohol and recreational drug consumption Allergies: No known allergies Patient seen and examined at bedside. Patient is alert and oriented to time, place person and responding to all questions. Patient is in distress due to pain in her back and left hip. Eyes: No Pain, No Vision change, No Conjunctivae inflammation, No Eyelid inflammation, No Redness ENT: No Ear pain, No Ear discharge, No Nose pain, No Nose discharge, No Nose congestion, No Mouth pain, No Mouth swelling, No Throat pain, No Throat swelling Cardiovascular: No Chest Pain, No Palpitations, No Orthopnea, No Paroxysmal No Dyspnea, No Edema, No Lt Headedness Respiratory: No Cough, No Dry, No Shortness of breath, No SOB with exertion, No Wheezing, No Hemoptysis, No Pleuritic Pain, No Sputum Gastrointestinal: No Nausea, No Vomiting, No Abdominal Pain, No Diarrhea, No Constipation, No Melena, No Hematochezia Genitourinary: No Dysuria, No Frequency, No Incontinence, No Hematuria, No Retention Cardiovascular: HTN Musculoskeletal: Other Endocrine: Diabetes Past Surgical History: Appendectomy, Hysterectomy ALCOHOL: none Drugs: None 02/14-Patient was seen at bed side. Labs and charts reviewed. Patient reported on going pain, on pain meds. ordered CXR, Typing and cross matching, EKG, PT with INR, Spoke to Dr. Weeks, Recommended for cardiology consult for cardiac clearance for surgery. Cardiolgy orderd ECHO 2D. 02/15- The patient was seen at bedside today. Vitals are stable and labs within range. Patient has ongoing pain,and is on pain management. Dr Weeks saw the patient and planned left total hip arthroplasty versus hip hemiarthroplasty. Patient has been kept NPO for the procedure. 02/16- the patient was seen at bedside today. Vitals are stable and labs within range. The patient has ongoing pain and is due for orthopedic surgery today. Patient requested rehab post discharge. 02/17- patient was seen at bedside today. Fever spikes last night, blood culture was ordered. Requested for placement in SNF post rehab, but was unable to complete physical therapy today because of low blood pressure and dizziness. We will try physical therapy again tomorrow. 02/18- patient was seen at bedside today. She has had no fever spikes since yesterday. Her blood culture was found to be positive for gram positive cocci, so she was started on vancomycin. We will observe her for 1 more day on IV antibiotics and possibly discharge her to SNF tomorrow. Her Keppra was switched from IV to oral. Per social work assistant, patient has been accepted at [facility] and has a bed assigned to her. 02/19- patient was seen at bedside today. All vitals are stable and labs within range. Pending report of the repeat blood culture. Patient states she is doing well and has been doing physical therapy twice daily. She was given MiraLax for constipation as she has not had a bowel movement in 1 week. Possible discharge for tomorrow was discussed with the social service technician and the patient. Objective vital signs Vital Sign Date Time Temp Pulse Resp B/P (MAP) Pulse Ox O2 Delivery O2 Flow Rate FiO2 02/19/25 17:00 97.6 65 18 120/71 (87) 93 97.6 02/19/25 08:00 Nasal Cannula* 2 28 Total Intake and Output 02/18/25 02/18/25 02/19/25 15:00 23:00 07:00 Intake Total 500 ml 420 ml 300 ml Balance 500 ml 420 ml 300 ml medications Current Medications Medications Dose Ordered Sig/Herve Route Start Time Stop Time Status Last Admin Dose Admin Sodium Chloride 1,000 ml @ 60 mls/hr [id number] IV 02/13/25 16:00 02/17/25 17:42 60 MLS/HR Acetaminophen/ Hydrocodone Bitart 1 tab Q4HP PRN PO 02/13/25 16:00 02/19/25 09:59 1 TAB Ondansetron HCl 4 mg Q4HP PRN IV 02/13/25 16:00 Acetaminophen 650 mg Q6HP PRN PO 02/13/25 16:00 02/16/25 10:13 650 MG Morphine Sulfate 2 mg Q4HPRN PRN IV 02/13/25 16:00 02/13/25 22:18 2 MG Nitroglycerin 0.4 mg Q5MINP PRN SL 02/13/25 16:00 Morphine Sulfate 2 mg Q30M PRN IV 02/13/25 16:00 Lisinopril 20 mg DAILY PO 02/14/25 10:00 02/19/25 09:31 20 MG Diagnostic Test (Pha) 1 strip ACHS 02/13/25 22:00 02/19/25 16:34 1 STRIP Insulin Human Regular ACHS SC 02/13/25 22:00 02/19/25 11:32 3 UNITS Dextrose 50 ml UD PRN IV 02/13/25 17:30 Levothyroxine Sodium 50 mcg QAM@0600 PO 02/14/25 06:00 02/19/25 06:58 50 MCG Citalopram Hydrobromide 40 mg DAILY PO 02/14/25 10:00 02/19/25 09:30 40 MG Cefepime HCl 50 ml @ 12.5 mls/hr DAILY IV 02/17/25 10:00 02/19/25 09:30 12.5 MLS/HR Aspirin 81 mg BID PO 02/16/25 22:00 02/19/25 09:30 81 MG Vancomycin HCl 0 ml @ 0 mls/hr UD IV 02/18/25 09:15 Levetiracetam 750 mg BID PO 02/18/25 22:00 02/19/25 09:30 750 MG Vancomycin HCl 250 ml @ 200 mls/hr Q8H IV 02/19/25 11:00 02/19/25 11:00 200 MLS/HR Enteral Nutritional Formula 27.5 gm BIDWM PO 02/19/25 18:00 Polyethylene Glycol 17 gm DAILY PO 02/20/25 10:00 Examination General Appearance: Cooperative. Well developed. Well nourished. NAD. Head Exam: Normal inspection Neck Exam: Normal inspection. Non-tender. Normal alignment Pulmonary/Respiratory: Chest non-tender. Clear bilateral breath sounds, no crackles, no wheezing. Cardiovascular/Chest: Regular rate and rhythm. No murmurs. No JVD. Peripheral Pulses: 2+ Radial (R). 2+ Radial (L). 2+ Pedal (R). 2+ Pedal (L) Abdominal Exam: Normal bowel sounds. Soft. normal abdomen, no visible veins, Nontender. No hepatospenomegaly. No masses Ankle Exam: Negative ankle edema Lower extremities: Negative lower extremity edema,bandage on left lateral side of hip Neuro/Mental Status: A&O x4. Coherent. Thoughts/Psych: Normal thought pattern. Appropriate mood and affect. Good judgement and insight Skin Exam: Normal inspection. Normal color. Warm. Dry laboratory and microbiology Laboratory Tests 02/19/25 05:40 Test 02/19/25 05:40 Range/Units Serum Glucose 144 H 74-106 mg/dL Microbiology Date/Time Source Procedure Growth Status 02/18/25 13:10 Blood Blood Culture - Preliminary NO GROWTH AFTER 24 HOURS OF INCUBATION. Resulted Labs and/or images reviewed: Labs reviewed by me, Image(s) reviewed by me Problem List/Assessment/Plan Problem List/Assessment/Plan Acute Left comminuted femoral neck fracture s/p Left hip hemiarthroplasty mechanical fall without LOC S5 vertebral body fracture -Pelvic CT showed-Significant comminuted, impacted left transcervical femoral neck fracture with anterior apex angulation -Largely nondisplaced fracture of the S5 vertebral body -ortho consult- left total hip arthroplasty on 02/16/25 -pain management -PT requested Bacteremia -blood culture positive for gram positive cocci -started on vancomycin Diabetes mellitus, controlled -insulin mild sliding scale Hypertension, controlled -continue lisinopril 50mg daily Seizure disorder -continue home dose of Keppra 750 mg bid Dyslipidemia -continue pravastatin Hypothyroidism -resume levothyroxine 50 PUD prophylaxis: not indicated DVT prophylaxis: not indicated Goals of care: Full code, discussed for >23 minutes Plan discussed with Dr Hatch Plan discussed with: Patient My Orders My Orders Orders - SANKET CHRISTIANSON RESIDENT Procedure Category Date Status Time Cardiac DIET 02/19/25 Transmitted Diet-2gna,Lofat,Lochol Lunch Nutritional PHA 02/19/25 In Process Supplements (Hong 18:00 Polyethylene Glycol PHA 02/20/25 In Process 17g Powder (Miralax 10:00 Dietary Evaluation Review Comments: Nutrition Recommendation: 1) CCHO 60gm + cardiac diet 2) Juevn 1 pk BID 3) Refer Chemistry Quality Control Analyst for diabetes education Expected Outcomes/Goals: To meet >75% estimated needs Lab values to improve Fu 3-5 days Date of Service: Feb 19, 2025 Billing Provider: MADINA HATCH MD Common Visit Codes: [id number] INP/OBS CARE(MOD) SANKET CHRISTIANSON RESIDENT Feb 19, 2025 17:46 MADINA HATCH MD Feb 24, 2025 19:53
[2025-02-19] MEDS: Juven Orange Powder PACKET 27.5gm PO SCH (18:00)
[2025-02-20 01:00] VITALS: BP 131/78; PULSE 62; RESP 17; TEMP 98.7; O2SAT 99
[2025-02-20 05:00] VITALS: BP 146/82; PULSE 60; RESP 18; TEMP 97.6; O2SAT 99
[2025-02-20 06:28] LABS: Hematocrit 31.3 % (36.0-46.0); Hemoglobin 10.8 g/dL (12.2-16.2); Mean Corpuscular Hemoglobin 31.8 pg (28.0-32.0); Mean Corpuscular Volume 91.9 fL (80.0-100.0); Nucleated Red Blood Cells % 0.1 %
[2025-02-20 06:50] LABS: Chloride 101 mmol/L (98-107); Potassium 4.2 mmol/L (3.5-5.1); Sodium 140 mmol/L (136-145)
[2025-02-20 06:51] LABS: Anion Gap 7 (5-15)
[2025-02-20 06:52] LABS: Calcium 8.6 mg/dL (8.7-10.4); Carbon Dioxide 32 mmol/L (20-31)
[2025-02-20 06:56] LABS: BUN/Creatinine Ratio 14.3 (10.0-20.0); Blood Urea Nitrogen 6 mg/dL (9-23); Glucose 129 mg/dL (74-106)
[2025-02-20 08:00] VITALS: PULSE 74; RESP 18; O2SAT 95
[2025-02-20] MEDS: POLYETHYLENE GLYCOL 17 GM PWDR PO SCH (08:56)
[2025-02-20 09:00] VITALS: BP 148/79; PULSE 60; RESP 17; TEMP 98; O2SAT 99
[2025-02-20 11:16] VITALS: BP 129/78; TEMP 36.7
--- NOTE | 2025-02-20 11:19 | DVHDSRES ---
Discharge Summary Date of Admission Resident Creating Document: SANKET CHRISTIANSON RESIDENT Feb 13, 2025 at 15:55 Date of Discharge: Feb 20, 2025 Admitting Diagnosis left femoral neck fracture Labs/Diagnostic Data: Laboratory Results Test 02/20/25 09:58 02/20/25 05:30 02/20/25 05:02 02/19/25 05:40 Vancomycin Level Trough 16.8 ug/mL (5-10) POC Glucose 148 mg/dl (70-106) White Blood Count 3.9 10^3/uL (4.4-10.8) Red Blood Count 3.40 10^6/uL (4.0-5.20) Hemoglobin 10.8 g/dL (12.2-16.2) Hematocrit 31.3 % (36.0-46.0) Mean Corpuscular Volume 91.9 fL (80.0-100.0) Mean Corpuscular Hemoglobin 31.8 pg (28.0-32.0) Mean Corpuscular Hemoglobin Concent 34.6 g/dL (32.0-36.0) Red Cell Distribution Width 12.8 % (11.8-14.3) Platelet Count 159 10^3/uL (140-450) Mean Platelet Volume 7.6 fL (6.9-10.8) Neutrophils (%) (Auto) 73.2 % (37.0-80.0) Lymphocytes (%) (Auto) 11.4 % (10.0-50.0) Monocytes (%) (Auto) 8.6 % (0.0-12.0) Eosinophils (%) (Auto) 6.2 % (0.0-7.0) Basophils (%) (Auto) 0.6 % (0.0-2.0) Neutrophils # (Auto) 2.9 10 ^3/uL (1.6-8.6) Lymphocytes # (Auto) 0.4 10 ^3/uL (0.4-5.4) Monocytes # (Auto) 0.3 10 ^3/uL (0-1.3) Eosinophils # (Auto) 0.2 10 ^3/uL (0-0.8) Basophils # (Auto) 0 10 ^3/uL (0-0.2) Nucleated Red Blood Cells 0.1 % Sodium Level 140 mmol/L (136-145) Potassium Level 4.2 mmol/L (3.5-5.1) Chloride Level 101 mmol/L (98-107) Carbon Dioxide Level 32 mmol/L (20-31) Anion Gap 7 (5-15) Blood Urea Nitrogen 6 mg/dL (9-23) Creatinine 0.42 mg/dL (0.550-1.02) Glomerular Filtration Rate Calc 102 mL/min (>90) BUN/Creatinine Ratio 14.3 (10.0-20.0) Serum Glucose 129 mg/dL (74-106) Calcium Level 8.6 mg/dL (8.7-10.4) Random Vancomycin Level 5.9 ug/mL (5-10) Test 02/15/25 05:08 02/14/25 21:21 02/13/25 17:50 02/13/25 17:21 Magnesium Level 1.7 mg/dL (1.6-2.6) Total Bilirubin 1.1 mg/dL (0.2-1.0) Aspartate Amino Transferase (AST) 14 U/L (13-40) Alanine Aminotransferase (ALT) 15 U/L (7-40) Alkaline Phosphatase 49 U/L (46-116) Total Protein 5.6 g/dL (5.7-8.2) Albumin 3.6 g/dL (3.2-4.8) Urine Color Colorless (Yellow) Urine Clarity Clear (Clear) Urine pH 6.0 (5.0-9.0) Urine Specific [place] 1.006 (1.001-1.035) Urine Protein Negative (Negative) Urine Ketones Negative (Negative) Urine Blood Negative /uL (Negative) Urine Nitrite 2+ (Negative) Urine Bilirubin Negative (Negative) Urine Urobilinogen Normal mg/dL (Negative) Urine Leukocyte Esterase Negative /uL (Negative) Urine RBC 1 /hpf (0 - 4) Urine Microscopic WBC 1 /HPF (0-5) Urine Squamous Epithelial Cells Few /hpf (<5) Urine Bacteria None seen /hpf (None Seen) Urine Glucose Normal mg/dL (Normal) Influenza Type A Antigen Negative (Negative) Influenza Type B Antigen Negative (Negative) SARS-CoV-2 Antigen (Rapid) Negative (NEGATIVE) Prothrombin Time 12.0 sec (9.3-11.8) Prothrombin Time INR 1.15 (0.9-1.15) Activated Partial Thromboplast Time 26.3 SEC (24.5-34.5) Test 02/13/25 14:40 02/13/25 11:30 Urine Mucus Few (None Seen) Hemoglobin A1c 6.6 % A1C (<5.7) Thyroid Stimulating Hormone (TSH) 2.04 uIU/mL (0.55-4.78) Other Laboratory Tests 02/20/25 05:02 Brief Hx & Hospital Course: Cynthia Parks is a 74-year-old female with history of diabetes mellitus type 2, seizure disorder, hypertension, hypothyroidism and dyslipidemia who presented to the ED after she tripped over her dog and fell this morning. Patient mentions that the fall impacted her left hip. She states she did not hit her head. The patient currently has pain in her lower back and her left hip. She can not move her left leg and can not bear weight on it. She placed her leg in a day rotated and flexed position. The patient was admitted to the hospital on the line of left femoral neck fracture. Chest x-ray, EKG, PT INR, typing and cross matching were ordered for the patient, which were within normal limits. All home medications were reconciled. Orthopedic surgery was consulted for the procedure and they recommended cardiology consult for cardiac clearance for surgery. Cardiology saw the patient and ordered 2D echo, showed EF 55%. On being cleared by Cardiology, the patient underwent left total hip arthroplasty on 02/16 with no perioperative complications. On day 2 after procedure, patient had a fever spike, blood culture was ordered which grew staph hominis, so the patient was started on vancomycin IV which was continued for 2 days. On evaluation today, blood culture is negative. Patient worked with physical therapy in the hospital and was recommended SNF for rehab post discharge. Patient was sent to SNF [facility] today in a stable condition. She was given ciprofloxacin 500 mg b.i.d. for 5 days. She was asked to follow-up in discharge Clinic and with Orthopedic surgery and PCP. All medications and recommendations were thoroughly explained to the patient and she demonstrated understanding of the same. All questions were answered and all concerns were addressed. Past medical history: Diabetes mellitus type 2, hypertension, seizure disorder, hypothyroidism, dyslipidemia Past surgical history: Shoulder replacement in May 2024, hysterectomy, fusion surgery for C5-C6 C7, surgical fixation of the right radius Home medications: Metformin, Keppra, lisinopril, levothyroxine, Celexa, pravastatin Social & Personal history: Lives at home, vapes nicotine, denies alcohol and recreational drug consumption Allergies: No known allergies General Appearance: Cooperative. Well developed. Well nourished. NAD. Head Exam: Normal inspection Neck Exam: Normal inspection. Non-tender. Normal alignment Pulmonary/Respiratory: Chest non-tender. Clear bilateral breath sounds, no crackles, no wheezing. Cardiovascular/Chest: Regular rate and rhythm. No murmurs. No JVD. Peripheral Pulses: 2+ Radial (R). 2+ Radial (L). 2+ Pedal (R). 2+ Pedal (L) Abdominal Exam: Normal bowel sounds. Soft. normal abdomen, no visible veins, Nontender. No hepatospenomegaly. No masses Ankle Exam: Negative ankle edema Lower extremities: Negative lower extremity edema,bandage on left lateral side of hip Neuro/Mental Status: A&O x4. Coherent. Thoughts/Psych: Normal thought pattern. Appropriate mood and affect. Good judgement and insight Skin Exam: Normal inspection. Normal color. Warm. Dry Consults/Reason for consult Operations or Procedures 1.PROCEDURE(s): PELVS - PELVIS AP REASON: fx ORDER NUMBER(s): [id number], ACCESSION NUMBER(s): [id number] FINDINGS/IMPRESSION: : There is no evidence of acute fracture or dislocation. Moderate degenerative changes of bilateral hips. Lucency is present in the left femoral neck which is felt to most likely represent artifact. If there is high clinical suspicion for fracture in this area recommend dedicated left hip radiographs. 2.PROCEDURE(s): PL2CT - PELVIS WO CONTRAST REASON: lefthip ORDER NUMBER(s): [id number], ACCESSION NUMBER(s): [id number] IMPRESSION: 1. Significant comminuted, impacted left transcervical femoral neck fracture with anterior apex angulation. 2. Largely nondisplaced fracture of the S5 vertebral body. 3.PROCEDURE(s): CXR1 - CHEST XRAY 1 VIEW REASON: Rule out pneumonia ORDER NUMBER(s): [id number], ACCESSION NUMBER(s): [id number] IMPRESSION: No acute infiltrates 4. Name of Procedure Performed Left hip hemiarthroplasty Procedure Details Procedure Details: I had a long discussion with the patient regarding the plan, the expected outcome, the risks, benefits, and alternatives of surgery. The risks include, but are not limited to, infection (which may require future surgery and removal of implants) , bleeding (which may require a transfusion), damage to nerves, arteries, veins, tendons, muscles and other adjacent structures. Also discussed the possibilities of dislocation, leg-length discrepancy, intraoperative fractures, implant loosening, heterotopic bone formation, and revision for variety of reasons, and medical complications etc. This was discussed at length and consent has been obtained. DESCRIPTION OF PROCEDURE: In the preoperative holding area, the consent was reviewed and the appropriate extremity was verified by the patient and marked with my initials. The patient was then transferred to the operating theatre. Appropriate anesthetia was induced. All bony prominences were well padded. A time out was performed verifying the side and site of surgery according to standard protocol. Preoperative antibiotics were given. Tranexamic acid was given. The patient was then placed in the lateral decubitus position and fixed with rigid pelvic fixation. All bony prominences were well padded and an axillary roll was placed. The affected hip area was then prepped and draped in the usual sterile fashion. We made a standard posterolateral incision sharply through the skin and carried our dissection down through subcutaneous tissue to the underlying fascia achieving hemostasis where necessary. We incised the fascia in line with our incision. We identified and protected the sciatic nerve. We took down the external rotators and hip capsule from their insertion into the greater trochanter, tagged them and retracted them posteriorly for further protection of the sciatic nerve. A Attention was then turned to the femur. We used a box osteotome followed by a canal finder to gain entry to the canal. Intramedullary contents were suctioned and care was taken to ensure they did not touch the tissues. We sequentially reamed until good cortical contact, then broached up to out final size. We trialed with the appropriate femoral neck and head and reduced the hip. The hip was taken through a full range of motion. The hip soft tissues were examined in extension and external rotation, the anterior capsule and IT band were palpated, and combined anteversion was determined to be 40 degrees. The hip was stable at maximum flexion, at 90 degrees of flexion and 45 degrees of internal rotation and the position of sleep. Leg lengths were restored as shown using the computer navigation, and the trial LTC matched preoperative and intraoperative templating. The hip was then dislocated and trial components removed. We copiously irrigated the wound and impacted the final femoral stem into position. The femoral head was impacted onto a clean and dry trunion and confirmed to be seated. The hip was reduced ensuring to tissues in the acetabular cup. We again brought it through a full functional range of motion and there was no evidence for dislocation, instability, or impingement. The checkpoint was removed. A dilute betadine solution (17.5mL in 500mL saline) was used to wash the joint and left to sit for 3 minutes. This was then irrigated out with copious amounts of pulse lavage. We sprinkled 1g vancomycin powder below the fascia and 1g above the fascia. We copiously irrigated the wound and soft tissues. The short external rotators and capsule were repaired to the greater trochanter through drill holes, and the quadratus was repaired. We palpated the sciatic nerve in continuity without tension. The fascia was closed with vicryl and a barbed suture. We closed over the fascia with vicryl suture and re-approximated the skin with leanne. A sterile dressing was placed. We returned the patient to the supine position. We verified all lower extremity compartments were soft and compressible and that we had intact distal pulses and checked our leg length jew. The patient was then transferred to the recovery room in stable condition. Condition at Discharge: Good Final Diagnosis/Problems List Acute Left comminuted femoral neck fracture s/p Left hip hemiarthroplasty mechanical fall without LOC S5 vertebral body fracture Gram-positive Bacteremia with Staphylococcus hominis Diabetes mellitus, controlled Hypertension, controlled Seizure disorder Dyslipidemia Hypothyroidism Discharge Disposition: [facility] Facility Discharge Instruct/Medications Diet: Consistent carbohydrate, Cardiac 2g Na,low cholest Activity: No Restrictions, As Tolerated Activity comment: Per physical therapy assessment Follow Up/Referral: PCP Ortho clinic Medications: Per EMR No Active Prescriptions or Reported Meds Discharge Statement: "Patient was advised to return to the ER or call 911 if any headaches, dizziness, shortness of breath, chest pain, abdominal pain, bleeding, fevers, or worsening of medical condition. Patient was counseled about treatment plan, medications, possible side effects, patientverbalized understanding. All questions were answered to the best of my ability. This discharge took greater then 30 minutes in planning, reviewing documentation, counseling the patient, and discussing with other team members." DME: Diagnosis: postop ASSESSMENT ASSESSMENT Hospital Course Cynthia Parks is a 74-year-old female with history of diabetes mellitus type 2, seizure disorder, hypertension, hypothyroidism and dyslipidemia who presented to the ED after she tripped over her dog and fell this morning. Patient mentions that the fall impacted her left hip. She states she did not hit her head. The patient currently has pain in her lower back and her left hip. She can not move her left leg and can not bear weight on it. She placed her leg in a day rotated and flexed position. The patient was admitted to the hospital on the line of left femoral neck fracture. Chest x-ray, EKG, PT INR, typing and cross matching were ordered for the patient, which were within normal limits. All home medications were reconciled. Orthopedic surgery was consulted for the procedure and they recommended cardiology consult for cardiac clearance for surgery. Cardiology saw the patient and ordered 2D echo, showed EF 55%. On being cleared by Cardiology, the patient underwent left total hip arthroplasty on 02/16 with no perioperative complications. On day 2 after procedure, patient had a fever spike, blood culture was ordered which grew staph hominis, so the patient was started on vancomycin IV which was continued for 2 days. On evaluation today, blood culture is negative. Patient worked with physical therapy in the hospital and was recommended SNF for rehab post discharge. Patient was sent to SNF [facility] today in a stable condition. She was given ciprofloxacin 500 mg b.i.d. for 5 days. She was asked to follow-up in discharge Clinic and with Orthopedic surgery and PCP. All medications and recommendations were thoroughly explained to the patient and she demonstrated understanding of the same. All questions were answered and all concerns were addressed. Past medical history: Diabetes mellitus type 2, hypertension, seizure disorder, hypothyroidism, dyslipidemia Past surgical history: Shoulder replacement in May 2024, hysterectomy, fusion surgery for C5-C6 C7, surgical fixation of the right radius Home medications: Metformin, Keppra, lisinopril, levothyroxine, Celexa, pravastatin Social & Personal history: Lives at home, vapes nicotine, denies alcohol and recreational drug consumption Assessment Acute Left comminuted femoral neck fracture s/p Left hip hemiarthroplasty mechanical fall without LOC S5 vertebral body fracture Gram-positive Bacteremia with the Staphylococcus hominis Diabetes mellitus, controlled Hypertension, controlled Seizure disorder Dyslipidemia Hypothyroidism Date of Service: Feb 20, 2025 Billing Provider: MADINA HAAS MD Common Visit Codes: 73242-DYI/OBS DISCH DAY >30min SANKET CHRISTIANSONUR RESIDENT Feb 20, 2025 11:19 MADINA HAAS MD Feb 24, 2025 19:53
[2025-02-20 13:00] VITALS: BP 123/80; PULSE 64; RESP 18; TEMP 98.7; O2SAT 94
[2025-02-20] MEDS ORDERED: VANCOMYCIN 1.25GM/250ML 250 ML IV SCH (15:00)
== END 2025-02-20 15:10 | DRG 956 ==
LOC: EDBD 10:59 → ER 10:59 → OVERFLOW 15:55 → CENTRAL 18:14
PROVIDERS: ADMIT Internal Medicine Geriatric Medicine; ATTEND Orthopaedic Surgery Adult Reconstructive Orthopaedic Surgery
PROC: 0SRS0JZ Replacement of Left Hip Joint, Femoral Surface with Synthetic Substitute, Open Approach (ICD-10-PCS; principal; 2025-02-16 12:23)
DX: S72.032A Displaced midcervical fracture of left femur, initial encounter for closed fracture (principal); S32.19XA Other fracture of sacrum, initial encounter for closed fracture; R78.81 Bacteremia; R71.0 Precipitous drop in hematocrit; B95.7 Other staphylococcus as the cause of diseases classified elsewhere; E03.9 Hypothyroidism, unspecified; I10 Essential (primary) hypertension; G40.909 Epilepsy, unspecified, not intractable, without status epilepticus; E11.9 Type 2 diabetes mellitus without complications; E78.5 Hyperlipidemia, unspecified; E07.9 Disorder of thyroid, unspecified; Z20.822 Contact with and (suspected) exposure to COVID-19; F17.290 Nicotine dependence, other tobacco product, uncomplicated; R00.1 Bradycardia, unspecified; Z96.612 Presence of left artificial shoulder joint; Z86.718 Personal history of other venous thrombosis and embolism; Z79.890 Hormone replacement therapy; W01.0XXA Fall on same level from slipping, tripping and stumbling without subsequent striking against object, initial encounter; Y93.89 Activity, other specified; Y92.89 Other specified places as the place of occurrence of the external cause; Y99.8 Other external cause status
CPT/HCPCS: 36415; 71045; 72170; 72192; 80048; 80053; 80202; 81001; 82962; 83036; 83735; 84443; 85025; 85610; 85730; 86850; 86900; 86901; 87040; 87077; 87186; 87426; 87804; 93005; 93306; 96374; 96375; 97110; 97116; 97163; G0378; J0131; J1815; J1885; J2250; J2405; J2704